=== PATIENT | female | born 1950 | race Caucasian/White ===

== ENCOUNTER 2019-06-25 11:11 | Outpatient (CLI) | payer MEDICARE, OTHER ==
[2019-06-25 11:50] LABS: BASOPHILS # (AUTO) 0.1 10^3/uL (0.0-0.1); BASOPHILS % (AUTO) 0.6 %; EOSINOPHILS # (AUTO) 0.3 10^3/uL (0.0-0.7); EOSINOPHILS % (AUTO) 3.4 %; HGB - HEMOGLOBIN 14.5 g/dL (12.0-16.0); LYMPHOCYTES # (AUTO) 3.8 10^3/uL (1.5-3.5); LYMPHOCYTES % (AUTO) 48.8 %; MEAN CORPUSCULAR HEMOGLOBIN 30.4 pg (27.0-31.0); MEAN CORPUSCULAR HGB CONC 32.4 g/dL (32.0-36.0); MEAN CORPUSCULAR VOLUME 93.9 fL (81.0-99.0); MEAN PLATELET VOLUME 9.4 fL (7.9-10.8); MONOCYTES # (AUTO) 0.6 10^3/uL (0.0-1.0); MONOCYTES % (AUTO) 7.6 %; NEUTROPHILS % (AUTO) 38.8 %; PLT - PLATELET COUNT 258 10^3/uL (130-450); RED BLOOD COUNT 4.77 10^6/uL (4.20-5.40); WHITE BLOOD COUNT 7.7 x10^3/uL (4.8-10.8)
[2019-06-25 12:16] LABS: ALBUMIN 4.1 g/dL (3.2-5.5); ALBUMIN/GLOBULIN RATIO 1.4 (1.0-2.2); ALKALINE PHOSPHATASE 74 IU/L (42-121); ALT ALANINE AMINOTRANSFERASE 23 IU/L (10-60); AST ASPARTATE AMINOTRANSFERASE 24 IU/L (10-42); BILIRUBIN,TOTAL 0.6 mg/dL (0.2-1.0); BUN - BLOOD UREA NITROGEN 14 mg/dL (6-20); CALCIUM 9.5 mg/dL (8.5-10.3); CARBON DIOXIDE - CO2 29 mmol/L (21-32); CHLORIDE 104 mmol/L (101-111); CHOL/HDL RATIO 4.5 (<4.4); CHOLESTEROL 327 mg/dL; CREATININE 0.8 mg/dL (0.4-1.0); GFR - MDRD 72 (>89); GLUCOSE 101 mg/dL (70-100); HDL CHOLESTEROL 73 mg/dL; LDL CHOLESTEROL,CALCULATED 224 mg/dL; LDL/HDL RATIO 3.1 (<4.4); SODIUM 141 mmol/L (135-145); TOTAL PROTEIN 7.1 g/dL (6.7-8.2); VLDL CHOLESTEROL 30 mg/dL
[2019-06-25 13:15] LABS: THYROID STIMULATING HORMONE 1.44 uIU/mL (0.34-5.60)
[2019-06-25 13:16] LABS: FREE T4 (FREE THYROXINE) 0.82 ng/dL (0.58-1.64)
== END 2019-06-25 11:12 | disposition home or self-care (01) ==
LOC: LAB 11:11
PROVIDERS: ATTEND Family Medicine
DX: F32.9 Major depressive disorder, single episode, unspecified (principal); Z13.6 Encounter for screening for cardiovascular disorders; M54.30 Sciatica, unspecified side; Z13.220 Encounter for screening for lipoid disorders
CPT/HCPCS: 36415; 80053; 80061; 83721; 84439; 84443; 84481; 85025

== ENCOUNTER 2020-06-12 10:18 | Inpatient (IN) | payer MEDICARE, OTHER ==
[2020-06-12] MEDS ORDERED: SODIUM CHLORIDE 0.9% 1,000 ML IV STA ×4 (10:47→12:18)
[2020-06-12] MEDS ORDERED: ACETAMINOPHEN 1,000 MG/100 ML 100 ML IV ONE (10:48)
[2020-06-12] MEDS ORDERED: TRANEXAMIC ACID 1,000 MG in SODIUM CHLORIDE 0.9% 100ML 100 ML IV STA (10:48)
[2020-06-12] MEDS ORDERED: fentaNYL 100 MCG/2 ML VIAL IVP STA (10:48)
--- NOTE | 2020-06-12 10:49 | ED Physician Documentation ---
PD HPI ABD PAIN - Stated complaint Stated Complaint: FEMAL - Chief complaint Chief Complaint: Abd Pain - History obtained from History obtained from: Patient - History of Present Illness Timing - onset: How many days ago (3) Timing - details: Still present (much worse this morning - He was some crampy pain in the low abdomen and some blood in her stool with loose stool 3 days ago. Better for 2 days. Onset cramping pain and significant bloody watery stool this morning. Pale and initially hypotensive.), Intermittant (much worse this morning) Quality: Cramping, Aching, Pain Location: LUQ, LLQ Radiation: No: Lower back, Left flank Associated symptoms: Nausea, Vomiting, Diarrhea, Hematochezia (10-12 episodes of somewhat watery but very bloody stool about a cup at a time over the last several hours. No stool per se.). No: Fever, Dysuria Similar symptoms before: Has not had sx before Review of Systems Constitutional: reports: Myalgias, Fatigue (for couple days). denies: Fever, Chills Nose: denies: Rhinorrhea / runny nose, Congestion Throat: denies: Sore throat Respiratory: denies: Cough GI: reports: Nausea, Diarrhea, Bloody / black stool : denies: Dysuria Neurologic: reports: Generalized weakness, Near syncope (this morning) Endocrine: denies: Weight loss, Easy bruising / bleeding Immunocompromised: denies: Immunocompromised PD PAST MEDICAL HISTORY - Past Medical History Cardiovascular: None Respiratory: None Neuro: None Endocrine/Autoimmune: None GI: Other (IBS) Psych: Depression - Present Medications Home Medications: Ambulatory Orders Medication Instructions Recorded Confirmed Fluoxetine HCl [Prozac] 40 mg PO DAILY 06/12/20 Gabapentin [Neurontin] 400 mg PO 06/12/20 Melatonin 10 mg PO DAILY PM 06/12/20 Simethicone [Gas Relief] 180 mg PO BID 06/12/20 Simvastatin 40 mg PO DAILY PM 06/12/20 - Allergies Allergies/Adverse Reactions: Allergies Allergy/AdvReac Type Severity Reaction Status Date / Time No Known Drug Allergies Allergy Verified 06/12/20 10:22 PD ED PE NORMAL - Vitals Vital signs reviewed: Yes (Tachycardic and very pale. She has syncope while talking to her.) - General General: Alert and oriented X 3, Well developed/nourished - HEENT HEENT: Pharynx benign - Neck Neck: Supple, no meningeal sign, No adenopathy - Cardiac Cardiac: No murmur. No: RRR (tachycardic but regular) - Respiratory Respiratory: Clear bilaterally - Abdomen Abdomen: Soft, Non distended, No organomegaly, Other (In the left mid to lower abdomen without any localized guarding or percussion tenderness.). No: Normal bowel sounds (decreased) - Rectal Rectal: Other (Candido blood and slightly watery stool output about 8 ounces per rectum acutely.) - Back Back: No CVA TTP - Derm Derm: No: Normal color (very pale And diaphoretic) - Extremities Extremities: No tenderness to palpate, No edema, No calf tenderness / cord Results - Vitals Vitals: Vital Signs - 24 hr 06/12/20 06/12/20 06/12/20 10:23 10:33 10:37 Temperature 36.8 C Heart Rate 119 H 71 Respiratory 18 18 Rate Blood Pressure 123/76 104/80 108/73 O2 Saturation 100 98 06/12/20 06/12/20 06/12/20 11:00 11:22 11:30 Temperature 36.4 C L Heart Rate 62 62 67 Respiratory 11 L 13 11 L Rate Blood Pressure 102/61 100/53 L 111/63 O2 Saturation 98 100 100 06/12/20 06/12/20 06/12/20 12:00 12:24 12:30 Temperature 36.3 C L 36.3 C L Heart Rate 85 85 68 Respiratory 16 16 19 Rate Blood Pressure 106/41 L 114/51 L 107/59 L O2 Saturation 100 06/12/20 12:40 Temperature 36.1 C L Heart Rate 65 Respiratory 15 Rate Blood Pressure 106/57 L O2 Saturation Oxygen O2 Source Room air - Labs Labs: Laboratory Tests 06/12/20 06/12/20 06/12/20 10:29 10:45 10:45 WBC 8.2 RBC 3.99 L Hgb 12.3 Hct 36.6 L MCV 91.7 MCH 30.8 MCHC 33.6 RDW 12.9 Plt Count 284 MPV 9.9 Neut # (Auto) Not Reportable Lymph # (Auto) Not Reportable [place] # (Auto) Not Reportable Eos # (Auto) Not Reportable Baso # (Auto) Not Reportable Absolute Nucleated RBC Not Reportable Total Counted 100 Band Neuts % (Manual) 0 Reactive Lymphs % (Man) 38 Abnorm Lymph % (Manual) 0 Nucleated RBC % Not Reportable Neutrophils # (Manual) 2.3 Lymphocytes # (Manual) 5.4 H Monocytes # (Manual) 0.3 Eosinophils # (Manual) 0.0 Basophils # (Manual) 0.2 H Differential Comment MANUAL DIFFERENTIAL Manual Slide Review Indicated RBC Morph Micro Appear 2+ ANISOCYTOSIS PT INR APTT Sodium 140 Potassium 3.8 Chloride 104 Carbon Dioxide 26 Anion Gap 10.0 BUN 15 Creatinine 0.9 Estimated GFR (MDRD) 62 L Glucose 115 H Lactic Acid Calcium 8.9 Total Bilirubin 0.5 AST 24 ALT 22 Alkaline Phosphatase 60 Total Protein 6.1 L Albumin 3.6 Globulin 2.5 Albumin/Globulin Ratio 1.4 Lipase 26 Urine Color YELLOW Urine Clarity CLEAR Urine pH 8.0 H Ur Specific [place] 1.020 Urine Protein NEGATIVE Urine Glucose (UA) NEGATIVE Urine Ketones NEGATIVE Urine Occult Blood LARGE H Urine Nitrite NEGATIVE Urine Bilirubin NEGATIVE Urine Urobilinogen 0.2 (NORMAL) Ur Leukocyte Esterase NEGATIVE Urine RBC 0-5 Urine WBC 0-3 Ur Squamous Epith Cells FEW Squamous Urine Bacteria Few Ur Microscopic Review INDICATED Urine Culture Comments NOT INDICATED Stl C. diff Tox B Gene Blood Type Blood Type Recheck Antibody Screen Crossmatch IS Only 06/12/20 06/12/20 06/12/20 10:45 10:45 11:09 WBC RBC Hgb Hct MCV MCH MCHC RDW Plt Count MPV Neut # (Auto) Lymph # (Auto) [place] # (Auto) Eos # (Auto) Baso # (Auto) Absolute Nucleated RBC Total Counted Band Neuts % (Manual) Reactive Lymphs % (Man) Abnorm Lymph % (Manual) Nucleated RBC % Neutrophils # (Manual) Lymphocytes # (Manual) Monocytes # (Manual) Eosinophils # (Manual) Basophils # (Manual) Differential Comment Manual Slide Review RBC Morph Micro Appear PT 12.4 INR 1.1 APTT 25.1 Sodium Potassium Chloride Carbon Dioxide Anion Gap BUN Creatinine Estimated GFR (MDRD) Glucose Lactic Acid 2.0 Calcium Total Bilirubin AST ALT Alkaline Phosphatase Total Protein Albumin Globulin Albumin/Globulin Ratio Lipase Urine Color Urine Clarity Urine pH Ur Specific [place] Urine Protein Urine Glucose (UA) Urine Ketones Urine Occult Blood Urine Nitrite Urine Bilirubin Urine Urobilinogen Ur Leukocyte Esterase Urine RBC Urine WBC Ur Squamous Epith Cells Urine Bacteria Ur Microscopic Review Urine Culture Comments Stl C. diff Tox B Gene Blood Type A POSITIVE Blood Type Recheck Antibody Screen NEGATIVE Crossmatch IS Only See Detail 06/12/20 06/12/20 11:09 11:16 WBC RBC Hgb Hct MCV MCH MCHC RDW Plt Count MPV Neut # (Auto) Lymph # (Auto) [place] # (Auto) Eos # (Auto) Baso # (Auto) Absolute Nucleated RBC Total Counted Band Neuts % (Manual) Reactive Lymphs % (Man) Abnorm Lymph % (Manual) Nucleated RBC % Neutrophils # (Manual) Lymphocytes # (Manual) Monocytes # (Manual) Eosinophils # (Manual) Basophils # (Manual) Differential Comment Manual Slide Review RBC Morph Micro Appear PT INR APTT Sodium Potassium Chloride Carbon Dioxide Anion Gap BUN Creatinine Estimated GFR (MDRD) Glucose Lactic Acid Calcium Total Bilirubin AST ALT Alkaline Phosphatase Total Protein Albumin Globulin Albumin/Globulin Ratio Lipase Urine Color Urine Clarity Urine pH Ur Specific [place] Urine Protein Urine Glucose (UA) Urine Ketones Urine Occult Blood Urine Nitrite Urine Bilirubin Urine Urobilinogen Ur Leukocyte Esterase Urine RBC Urine WBC Ur Squamous Epith Cells Urine Bacteria Ur Microscopic Review Urine Culture Comments Stl C. diff Tox B Gene NEGATIVE Blood Type Blood Type Recheck A POSITIVE Antibody Screen Crossmatch IS Only - Rads (name of study) abd CT Radiology: Prelim report reviewed (Colitis noted in the transverse to descending colon. There is some diverticula but no diverticulitis. No perforation.), See rad report PD MEDICAL DECISION MAKING - ED course Complexity details: reviewed results, re-evaluated patient (There is improved and blood pressure is consistently over 100 after fluids. I was initially concerned for the ongoing amount of output and had not yet had the blood count back. I did order 1 unit of transfusion to help with blood pressure support, as hypotensive still after 2 L fluid ), considered differential, d/w patient, d/w sr. consultant (Consulted early with Dr. Berger for surgery. To see how her blood count and blood pressure do with fluids. CT scan indicated. If focal bleeding such as diverticula, may need transferring for IR. Otherwise can treat as colitis.) ED course: Pressure and heart rate to normalize. She has better color. She is able to talk clearly. She has less stool out since arrival and has had just 1 more passage of bloody diarrhea about 75 mL in the ER. It does seem to be tapering. CT showing colitis and not a focal diverticulitis. No evidence of ischemic bowel. - Critical Care Time(min): 45 Time Includes: Direct patient care, Document care, Coordinate care Departure - Departure Disposition: 66 [facility] DC/Xfer Clinical Impression: Acute colitis, Lower GI bleeding, Transient hypotension Condition: Stable Record reviewed to determine appropriate education?: Yes Discharge Date/Time: 06/12/20 13:55
[2020-06-12 10:57] LABS: BILIRUBIN,URINE NEGATIVE (NEGATIVE); GLUCOSE, URINE (UA) NEGATIVE (NEGATIVE); KETONES,URINE (UA) NEGATIVE (NEGATIVE); LEUKOCYTE ESTERASE, URINE NEGATIVE (NEGATIVE); NITRITE,URINE NEGATIVE (NEGATIVE); OCCULT BLOOD,URINE LARGE (NEGATIVE); PROTEIN,URINE NEGATIVE (NEGATIVE); UROBILINOGEN,URINE 0.2 (NORMAL) E.U./dL (NORMAL)
[2020-06-12 11:01] LABS: BASOPHILS % (AUTO) 0.6 %; EOSINOPHILS % (AUTO) 3.7 %; HGB - HEMOGLOBIN 12.3 g/dL (12.0-16.0); MEAN CORPUSCULAR HEMOGLOBIN 30.8 pg (27.0-31.0); MEAN CORPUSCULAR HGB CONC 33.6 g/dL (32.0-36.0); MEAN CORPUSCULAR VOLUME 91.7 fL (81.0-99.0); MEAN PLATELET VOLUME 9.9 fL (7.9-10.8); MONOCYTES % (AUTO) 5.7 %; NEUTROPHILS % (AUTO) 37.5 %; PLT - PLATELET COUNT 284 10^3/uL (130-450); RED BLOOD COUNT 3.99 10^6/uL (4.20-5.40); RED CELL DISTRIBUTION WIDTH 12.9 % (12.0-15.0); WHITE BLOOD COUNT 8.2 x10^3/uL (4.8-10.8)
[2020-06-12 11:03] LABS: ABNORMAL LYMPHS % (MANUAL) 0 %; BAND NEUTROPHILS % (MANUAL) 0 %
[2020-06-12 11:09] LABS: ALBUMIN 3.6 g/dL (3.2-5.5); ALBUMIN/GLOBULIN RATIO 1.4 (1.0-2.2); BILIRUBIN,TOTAL 0.5 mg/dL (0.2-1.0); CALCIUM 8.9 mg/dL (8.5-10.3); CREATININE 0.9 mg/dL (0.4-1.0); TOTAL PROTEIN 6.1 g/dL (6.7-8.2)
[2020-06-12 11:11] LABS: CLARITY,URINE CLEAR (CLEAR)
[2020-06-12 11:14] LABS: BACTERIA,URINE Few /HPF (None Seen); RBC,URINE 0-5 /HPF (0-5); SQUAMOUS EPITHELIAL CELL,UR FEW Squamous (<= Few)
[2020-06-12 11:20] LABS: BASOPHILS # (MANUAL) 0.2 10^3/uL (0-0.1); BASOPHILS % (MANUAL) 2 %; LYMPHOCYTES # (MANUAL) 5.4 10^3/uL (1.5-3.5); LYMPHOCYTES % (MANUAL) 28 %; MONOCYTES # (MANUAL) 0.3 10^3/uL (0.0-1.0)
[2020-06-12 11:21] LABS: DIFFERENTIAL COMMENT MANUAL DIFFERENTIAL; RBC MORPHOLOGY (MULTIPLE) 2+ ANISOCYTOSIS (NORMAL)
[2020-06-12 11:27] LABS: INR 1.1 (0.8-1.2); PT - PROTHROMBIN TIME 12.4 secs (9.9-12.6)
[2020-06-12 11:34] LABS: PARTIAL THROMBOPLASTIN TIME 25.1 secs (24.9-33.3)
[2020-06-12] MEDS ORDERED: IOVERSOL 320 100 ML VIAL IVP ONE ×2 (11:45→17:42)
--- NOTE | 2020-06-12 12:29 | CT Report ---
PROCEDURE: Abdomen/Pelvis W INDICATIONS: lower abd pain and GI bleeding CONTRAST: IV CONTRAST: Optiray 320 ml: 100 PO CONTRAST: *NO PO CONTRAST TECHNIQUE: After the administration of 100 cc Optiray 320 IV contrast, 5 mm thick sections acquired from the abdoul phragms to the symphysis. 5 mm thick coronal and sagittal reformats were acquired. For radiation do se reduction, the following was used: automated exposure control, adjustment of mA and/or kV accordi ng to patient size. COMPARISON: None. FINDINGS: Image quality: Excellent. ABDOMEN: Lung bases: Lung bases are clear. Heart size is normal. Moderate-sized hiatal hernia. Solid organs: Liver and spleen are normal in size and enhancement. Gallbladder has a normal CT appe arance. Biliary system is non dilated. Pancreas enhances normally. No adrenal nodules. Kidneys de monstrate normal size and enhancement, without hydronephrosis. Peritoneum and bowel: The colon is decompressed beginning at the mid transverse and demonstrates sli ght wall thickening to the distal descending colon. Numerous diverticula are present in the sigmoid c olon. The rectum is diffusely decompressed. Trace inflammatory changes seen in the left paracolic gut ter. Occasional diverticula present in the descending colon. The appendix is not visible. No small christina wel obstruction. No free fluid or air. Nodes and vessels: No retroperitoneal or mesenteric adenopathy by size criteria. Aorta and inferior vena cava are normal in size. Miscellaneous: No ventral hernias. PELVIS: Genitourinary: Bladder wall thickness is normal. The uterus is retroverted. There are surgical clip s of tubal ligation present. Miscellaneous: No inguinal hernias or adenopathy. Bones: No suspicious bony lesions. No vertebral body compression fractures. IMPRESSION: 1. Colon spasm or mild colitis from the mid transverse through distal descending colon. No evidence o f perforation or abscess. 2. Sigmoid diverticulosis without acute diverticulitis. 3. Moderate-sized hiatal hernia. Reviewed by: Zora Gonzalez MD on 06/12/2020 11:28 AM BLAYNE Approved by: Zora Gonzalez MD on 06/12/2020 11:28 AM AKNOMI Station ID: [id number]
[2020-06-12] MEDS ORDERED: HYDROmorphone 0.5 MG/0.5 ML SYRINGE IVP PRN (12:55)
[2020-06-12] MEDS ORDERED: ONDANSETRON ODT 4 MG TABLET TL PRN (12:55)
[2020-06-12] MEDS ORDERED: ONDANSETRON 4 MG/2 ML VIAL IVP PRN (12:55)
[2020-06-12] MEDS ORDERED: PANTOPRAZOLE 40 MG VIAL IVP SCH (13:00)
[2020-06-12] MEDS ORDERED: metroNIDAZOLE 500 MG/100 ML 500 MG/100 ML BAG IV ONE (13:02)
[2020-06-12] MEDS ORDERED: DEXAMETHASONE 10 MG/ML VIAL IVP STA (13:02)
--- NOTE | 2020-06-12 13:06 | HISTORY & PHYSICAL EXAMINATION ---
Chief Complaint - Chief Complaint Chief Complaint: bloody stool/diarrhea History of Present Illness - Admitted From Admitted From:: home/ER - History Obtained From Records Reviewed: [facility] History obtained from: patient Exam Limitations: none - History of Present Illness HPI Comment/Other: 69-year-old white female who has irritable bowel syndrome. For decades she will get episodes of sudden onset of severe abdominal cramping. Then the diarrhea comes. Will last few hours to a few days. Accompanied by sweats, nausea. She has had 3 colonoscopies so far. The second colonoscopy had "an ulcer" that was followed up by a CT scan. Pathology was negative she remembers. CT scan showed "a spot" with a subsequent follow-up CT scan where everything was "good". The third colonoscopy was negative. All of them have showed diverticulosis. She is due to have another colonoscopy same around 2018 but has not done one yet. Shayne just told her to have a scheduled appointment soon. She is not had any recent travel. She just ate at [employer] last . Friday at 1 in the morning she woke up in the middle the night with severe abdominal cramping. Thought she was having a normal bowel movement but when she wiped there was copious amounts of blood in the toilet and on the toilet paper. No fever, no chills. The abdominal pain was gone. The next day she had a normal bowel movement. Then on Friday she began having crampy abdominal pain again. She is had a few bowel movements that are with blood in them. But also very watery with almost no stool in them. No fever no chills just crampy waxing and waning pain. She came to the emergency room where she was evaluated by Dr. Burris. Temperature is 36.8. Pulse was 119. Blood pressure 123/76. Respirations 18 and 100% on room air. However, he describes her as pale, and hypotensive.He was alarmed enough at her appearance that he thought she was having a GI bleed and typed and crossed her immediately. She received dexamethasone, fentanyl, Dilaudid, metronidazole, 4 L of fluid wide open with Zofran and tranexamic acid. She stabilized with that. And her lab work came back with a hemoglobin of 12.3. White cell count was not elevated.CT of the abdomen had slight wall thickening of the mid transverse bowel to the distal descending colon. Numerous diverticuli. Rectum diffusely decompressed. Trace inflammatory changes seen in the left paracolic gutter. No diverticulitis, or acute changes. There appears to be colon spasm that was being seen. She also has a moderate sized hiatal hernia. Hospitalist service is being asked to admit the patient for new onset diarrhea, bloody stool, and colitis versus infection. 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 Many times is felt the world would be a better place without her. She has been tried on fluoxetine, Paxil and trazodone. Psychiatry changed her medications from Prozac to Zoloft August 2019.) Musculoskeletal: reports: Chronic back pain (with sciatica. Sees [facility]. Has had 4 epidurals. 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 Dad had an MS And at age 43. Older sister has coronary artery disease and congestive heart failure. Next oldest sister has irritable bowel syndrome and lung cancer. NeXT sister has Parkinson's disease. Her 2 sons are completely healthy. Living arrangement: At home Living Situation: With spouse/s.o. Social History Notes: She has never smoked. She has no history of alcohol abuse.She moved to [facility] in 2018.She was born and raised in [facility]. Met her and they had fallen in love with the [facility] because they visited he had 1 of his uncles here. They lived in [place] as well as [place]. Then his job to come back down to [place]. 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 Very stressful job. Retired back here because they love it. 1 of her sons lives in [place]. - Substance History Use: Uses substance without health or social issues: NONE Abuse: Recurrent use of substance despite neg consequences: NONE Dependence: Experiences withdrawal or developed tolerances: NONE - POLST Patient has POLST: No POLST Status: Full Code Meds/Allgy - Home Medications Home Medications: Ambulatory Orders Medication Instructions Recorded Confirmed Fluoxetine HCl [Prozac] 40 mg PO DAILY 06/12/20 Gabapentin [Neurontin] 400 mg PO 06/12/20 Melatonin 10 mg PO DAILY PM 06/12/20 Simethicone [Gas Relief] 180 mg PO BID 06/12/20 Simvastatin 40 mg PO DAILY PM 06/12/20 - Allergies Allergies/Adverse Reactions: Allergies Allergy/AdvReac Type Severity Reaction Status Date / Time No Known Drug Allergies Allergy Verified 06/12/20 10:22 Review of Systems - Constitutional Constitutional: reports: Diaphoresis (only w cramps). denies: Fatigue, Fever, Chills, Malaise, Weakness, Poor appetite, Weight gain, Weight loss - Eyes Eyes: denies: Pain, Irritation, Amaurosis, Blurred vision, Vision loss - Ears, Nose & Throat Ears, Nose & Throat: denies: Ear pain, Hearing loss, Hearing aids, Tinnitus, Vertigo, Sore throat, Hoarseness - Cardiovascular Cariovascular: denies: Irregular heart rate, Palpitations, Chest pain, Edema, Syncope, Exertional dyspnea, Decr. exercise tolerance - Respiratory Respiratory: denies: Cough, Sputum production, Wheezing, SOB at rest, SOB with exertion - Gastrointestinal Gastrointestinal: reports: Abdominal pain, Diarrhea, Change in bowel habits, Rectal bleeding, Nausea - Genitourinary Genitourinary: denies: Dysuria, Frequency, Urgency, Hematuria - Musculoskeletal Musculoskeletal: reports: Joint pain (At the bases of her thumbs. Attributes that to aging.), Other (Chronic low back pain from her spinal stenosis. Sciatic pain waxes and wanes and flares up.) - Integumentary Integumentary: denies: Rash, Pruritis, Lesions, Dryness - Neurological Neurological: denies: General weakness, Focal weakness, Headache, Memory problems, Pre-existing deficit - Psychiatric Psychiatric: reports: Depression (Stable at this time.), Suicidal (In the past. Not currently.). denies: Delusions, Hallucinations, Homicidal - Endocrine Endocrine: denies: Polyuria, Polydypsia, Polyphagia, Intolerance to cold - Hematologic/Lymphatic Hematologic/Lymphatic: denies: Anemia, Bruising, Petechiae Prior Level of Functionality: Completely independent with regards to dressing herself, feeding herself, taking showers. Does light housework. Drives. Helps pay the bills. Does not use any durable medical equipment. Exam - Vital Signs Reviewed Vital Signs: Yes Vital Signs: Vital Signs x48h Temp Pulse Resp BP Pulse Ox 06/12/20 12:40 36.1 C L 65 15 106/57 L 06/12/20 12:30 36.3 C L 68 19 107/59 L 06/12/20 12:24 36.3 C L 85 16 114/51 L 06/12/20 12:00 85 16 106/41 L 100 06/12/20 11:30 67 11 L 111/63 100 06/12/20 11:22 62 13 100/53 L 100 06/12/20 11:00 36.4 C L 62 11 L 102/61 98 06/12/20 10:37 71 18 108/73 98 06/12/20 10:33 104/80 06/12/20 10:23 36.8 C 119 H 18 123/76 100 - Physical Exam General Appearance: positive: No acute distress, Alert, Other (Nourished well- developed white female who is laying comfortably in bed) Eyes Bilateral: positive: PERRL ENT: positive: Pharynx nml Neck: positive: No JVD. negative: Stiff neck Respiratory: positive: Chest non-tender. negative: Wheezes, Rales, Rhonchi Cardiovascular: positive: Regular rate & rhythm, Systolic murmur. negative: Gallop/S4, Friction rub Peripheral Pulses: positive: 1+ Abdomen: positive: Non-tender, No organomegaly, No distention, Other (Hyperactive bowel sounds) Skin: positive: Warm, Dry. negative: Diaphoresis, Pallor Extremities: positive: Non-tender, No pedal edema Neurologic/Psychiatric: positive: Oriented x3, CN's nml (2-12), Motor nml Conclusion/Plan - Problem List (1) Bloody diarrhea Conclusion/Plan: Sudden onset. Sounds like she presented with a painless bloody bowel movement, and then has had diarrhea sometimes with blood in it. Gradually worsening over the last 2 days with her abdominal pain followed by the bloody diarrhea. There have been no fever, no chills. No one else in her life is sick. She does not have a history of inflammatory bowel disease And has only been diagnosed with irritable bowel syndrome so developing inflammatory bowel disease at 69 would be unusual. There is been no change in diet. There is no nausea or vomiting with this. CT scan does not show ischemic colitis. She is not at risk for ischemic colitis. She could have infectious diarrhea. In the emergency room she has become hypotensive with this. However with treatment with dexamethasone, fentanyl, metronidazole and transexamic acid she has improved After her transient hypotension. She could also have diverticular bleeding. Plan: Inpatient admission due to severity of illness with hypotension, pain and amount of diarrhea Serial hemograms to make sure she is not losing enough blood to be transfused. Dr. Burris is already typed and crossed her and she has 2 units available if we needed. Send stool for Entamoeba, Salmonella, Shigella, C. difficile, fecal leukocyte. Stool culture. Parasites. IV fluids for hydration Opiates, IV, for pain management Antiemetics PRN (2) Chronic pain Conclusion/Plan: At this time she takes gabapentin. We also will give her Tylenol as needed, oxycodone as needed. Qualifiers: Chronic pain type: chronic pain syndrome Qualified Code(s): G89.4 - Chronic pain syndrome (3) Depression Conclusion/Plan: Resume fluoxetine. Qualifiers: Depression Type: unspecified Qualified Code(s): F32.9 - Major depressive disorder, single episode, unspecified - Lab Results Lab results reviewed: Yes Fish Bones: 06/12/20 15:53 06/12/20 10:45 - Diagnostic Imaging Results Diagnostic Imaging Results: positive: Final report reviewed
[2020-06-12] MEDS: LACTATED RINGERS 1,000 ML IV SCH (15:07)
[2020-06-12 16:00] LABS: BASOPHILS % (AUTO) 0.4 %; EOSINOPHILS % (AUTO) 0.1 %; HGB - HEMOGLOBIN 11.8 g/dL (12.0-16.0); LYMPHOCYTES # (AUTO) 1.7 10^3/uL (1.5-3.5); LYMPHOCYTES % (AUTO) 16.4 %; MEAN CORPUSCULAR HEMOGLOBIN 30.6 pg (27.0-31.0); MEAN CORPUSCULAR HGB CONC 33.3 g/dL (32.0-36.0); MEAN CORPUSCULAR VOLUME 91.7 fL (81.0-99.0); MEAN PLATELET VOLUME 9.5 fL (7.9-10.8); MONOCYTES # (AUTO) 0.1 10^3/uL (0.0-1.0); MONOCYTES % (AUTO) 1.3 %; NEUTROPHILS # (AUTO) 8.2 10^3/uL (1.5-6.6); PLT - PLATELET COUNT 228 10^3/uL (130-450); RED BLOOD COUNT 3.86 10^6/uL (4.20-5.40); RED CELL DISTRIBUTION WIDTH 13.2 % (12.0-15.0); WHITE BLOOD COUNT 10.1 x10^3/uL (4.8-10.8)
[2020-06-12] MEDS: SODIUM CHLORIDE FLUSH 0.9% 10 ML SYRINGE IVP SCH (17:33)
[2020-06-12] MEDS: PANTOPRAZOLE 40 MG VIAL IVP SCH (17:33)
--- NOTE | 2020-06-12 17:41 | PHARMACY PROGRESS NOTE ---
- Best Possible Medication History Admit Date and Time: 06/12/20 9092 Processed by: Pharmacy Medication History completed: Yes Patient Interview: Completed Secondary Source(s): Physician records, Pharmacy records, Insurance records As the person ultimately responsible for medication therapy, providers are able to order a medication from an existing home medication list in [facility] via the "Reconcile Routine" prior to Confirmation of that medication by senior support engineer. Such practice is discouraged except when the physician, in their clinical judgment, deems that a medical need exists for a medication without regard to previous use.
[2020-06-12 18:53] LABS: BASOPHILS % (AUTO) 0.4 %; HGB - HEMOGLOBIN 11.7 g/dL (12.0-16.0); LYMPHOCYTES # (AUTO) 1.7 10^3/uL (1.5-3.5); LYMPHOCYTES % (AUTO) 17.7 %; MEAN CORPUSCULAR HGB CONC 33.6 g/dL (32.0-36.0); MEAN CORPUSCULAR VOLUME 92.1 fL (81.0-99.0); MEAN PLATELET VOLUME 9.6 fL (7.9-10.8); MONOCYTES # (AUTO) 0.1 10^3/uL (0.0-1.0); MONOCYTES % (AUTO) 0.9 %; NEUTROPHILS # (AUTO) 7.6 10^3/uL (1.5-6.6); NEUTROPHILS % (AUTO) 80.5 %; PLT - PLATELET COUNT 234 10^3/uL (130-450); RED BLOOD COUNT 3.78 10^6/uL (4.20-5.40); RED CELL DISTRIBUTION WIDTH 13.3 % (12.0-15.0); WHITE BLOOD COUNT 9.5 x10^3/uL (4.8-10.8)
[2020-06-12] MEDS: FLUoxetine 10 MG CAPSULE PO SCH (21:32)
[2020-06-12] MEDS: GABAPENTIN 400 MG CAPSULE PO SCH (21:32)
[2020-06-12] MEDS: metroNIDAZOLE 500 MG/100 ML 500 MG/100 ML BAG IV SCH (21:34)
[2020-06-13] MEDS: SODIUM CHLORIDE FLUSH 0.9% 10 ML SYRINGE IVP SCH ×4 (01:18→23:39)
[2020-06-13] MEDS: LACTATED RINGERS 1,000 ML IV SCH ×4 (02:53→22:51)
[2020-06-13] MEDS: metroNIDAZOLE 500 MG/100 ML 500 MG/100 ML BAG IV SCH (05:58)
[2020-06-13] MEDS: PANTOPRAZOLE 40 MG VIAL IVP SCH (05:58)
[2020-06-13] MEDS: SODIUM CHLORIDE FLUSH 0.9% 10 ML SYRINGE IVP PRN ×2 (05:59→13:36)
[2020-06-13 08:10] LABS: BASOPHILS % (AUTO) 0.3 %; HGB - HEMOGLOBIN 11.8 g/dL (12.0-16.0); LYMPHOCYTES # (AUTO) 4.8 10^3/uL (1.5-3.5); LYMPHOCYTES % (AUTO) 36.3 %; MEAN CORPUSCULAR HEMOGLOBIN 30.4 pg (27.0-31.0); MEAN CORPUSCULAR HGB CONC 33.2 g/dL (32.0-36.0); MEAN CORPUSCULAR VOLUME 91.5 fL (81.0-99.0); MEAN PLATELET VOLUME 9.6 fL (7.9-10.8); MONOCYTES # (AUTO) 0.8 10^3/uL (0.0-1.0); MONOCYTES % (AUTO) 6.1 %; NEUTROPHILS # (AUTO) 7.6 10^3/uL (1.5-6.6); NEUTROPHILS % (AUTO) 56.7 %; PLT - PLATELET COUNT 265 10^3/uL (130-450); RED BLOOD COUNT 3.88 10^6/uL (4.20-5.40); RED CELL DISTRIBUTION WIDTH 13.3 % (12.0-15.0); WHITE BLOOD COUNT 13.3 x10^3/uL (4.8-10.8)
[2020-06-13 08:16] LABS: CALCIUM 8.2 mg/dL (8.5-10.3); CREATININE 0.8 mg/dL (0.4-1.0)
[2020-06-13] MEDS ORDERED: POTASSIUM CHLORIDE 20 MEQ TABLET PO ONE (12:00)
--- NOTE | 2020-06-13 16:36 | PROVIDER PROGRESS NOTE ---
Assessment/Plan - Problem List (1) Bloody diarrhea Assessment/Plan: Sudden onset of a painless bloody bowel movement then over 2 days she had abdominal pain followed by the bloody diarrhea. There has been no fever, no chills. No one else in her life is sick. She does not have a history of inflammatory bowel disease and has only been diagnosed with irritable bowel syndrome so developing inflammatory bowel disease at 69 would be unusual. There is been no change in diet. There is no nausea or vomiting with this. CT scan does not show ischemic colitis and she is not at risk for ischemic colitis. She could have infectious diarrhea. In the emergency room she has become hypotensive with this. However with treatment with dexamethasone, fentanyl, metronidazole and transexamic acid she has improved After her transient hypotension. She could also have diverticular bleeding. C diff is neg Inpatient admission needed due to severity of illness with hypotension, pain and amount of diarrhea Continue to monitor serial H/H to make sure she is not losing enough blood to be transfused. Stool smaples sent and are pending for Entamoeba, Salmonella, Shigella cultures and for fecal leukocytes and parasites. IV fluids for hydration will taper down as advancing her diet is tolerated. Opiates IV, for pain management ar ordered prn, but pain has lessened considerably. Antiemetics PRN also ordered but not needed today. Will requerst Gen Surg consult, does she need a colonoscopy now and regarding management recommendations for presumed bleeding diverticula. (2) Chronic pain Qualifiers: Chronic pain type: chronic pain syndrome Qualified Code(s): G89.4 - Chronic pain syndrome Assessment/Plan: She had been taking gabapentin. We also ordered Tylenol as needed, oxycodone as needed. (3) Depression Qualifiers: Depression Type: unspecified Qualified Code(s): F32.9 - Major depressive disorder, single episode, unspecified Assessment/Plan: Plan to resume fluoxetine. - Current Meds Current Meds: Current Medications Generic Name Dose Route Start Last Admin Trade Name Freq PRN Reason Stop Dose Admin Fluoxetine HCl 40 mg 06/12/20 21:00 06/12/20 21:32 Prozac PO 40 mg QPM LIAN Administration Gabapentin 400 mg 06/12/20 21:00 06/12/20 21:32 Neurontin PO 400 mg QPM LIAN Administration Lactated Ringer's 1,000 mls @ 100 mls/hr 06/12/20 13:00 06/13/20 13:35 Lr IV 100 mls/hr .Q10H LIAN Administration Pantoprazole Sodium 40 mg 06/12/20 16:00 06/13/20 05:58 Protonix IVP 40 mg QDAC LIAN Administration Sodium Chloride 10 ml 06/12/20 12:55 06/13/20 13:36 Normal Saline Flush 0.9% IVP 10 ml PRN PRN Administration NEEDED PER PROVIDER ORDERS Sodium Chloride 10 ml 06/12/20 17:00 06/13/20 11:24 Normal Saline Flush 0.9% IVP Not Given 0100,0900,1700 LIAN - Lab Result Fish Bone Diagrams: 06/13/20 08:00 06/13/20 08:00 - Additional Planning My Orders: My Active Orders 06/13/20 17:00 metroNIDAZOLE [Flagyl] 500 mg PO 0100,0900,1700 Subjective - Subjective Patient Reports: Feeling Better, Resting Comfortably, No Complaints (No crampy abdominal pain, had one semi-formed brown BM with slight blood streaking externally.) Objective Vital Signs: Vital Signs - 24 hr 06/12/20 06/13/20 06/13/20 23:55 07:50 16:00 Temperature 37.3 C 37.1 C 36.5 C Heart Rate [ 69 73 63 Brachial] Respiratory 16 16 16 Rate Blood Pressure 113/60 108/55 L 110/53 L [Left Brachial artery] O2 Saturation 97 99 100 Oxygen O2 Source Room air I&O (Last 24 Hrs): Intake and Output Totals x24h 06/11/20 06/12/20 06/13/20 23:59 23:59 23:59 Intake Total 6326.667 2743.333 Output Total 2049 2925 Balance 4276.667 -181.667 General: Alert, Oriented x3 HEENT: EOMI, Mucous membr. moist/pink Neck: Supple, No JVD Neuro: Alert, Non Focal Cardiovascular: Regular rate, No murmurs Respiratory: No respiratory distress Abdomen: Soft, No tenderness, Other (Hypoactive bowel sounds) Extremities: No edema - Results Results: Laboratory Results WBC 13.3 x10^3/uL (4.8-10.8) H 06/13/20 08:00 RBC 3.88 10^6/uL (4.20-5.40) L 06/13/20 08:00 Hgb 11.8 g/dL (12.0-16.0) L 06/13/20 08:00 Hct 35.5 % (37.0-47.0) L 06/13/20 08:00 MCV 91.5 fL (81.0-99.0) 06/13/20 08:00 MCH 30.4 pg (27.0-31.0) 06/13/20 08:00 MCHC 33.2 g/dL (32.0-36.0) 06/13/20 08:00 RDW 13.3 % (12.0-15.0) 06/13/20 08:00 Plt Count 265 10^3/uL (130-450) 06/13/20 08:00 MPV 9.6 fL (7.9-10.8) 06/13/20 08:00 Neut # (Auto) 7.6 10^3/uL (1.5-6.6) H 06/13/20 08:00 Lymph # (Auto) 4.8 10^3/uL (1.5-3.5) H 06/13/20 08:00 [place] # (Auto) 0.8 10^3/uL (0.0-1.0) 06/13/20 08:00 Eos # (Auto) 0.0 10^3/uL (0.0-0.7) 06/13/20 08:00 Baso # (Auto) 0.0 10^3/uL (0.0-0.1) 06/13/20 08:00 Absolute Nucleated RBC 0.00 x10^3/uL 06/13/20 08:00 Total Counted 100 06/12/20 10:29 Band Neuts % (Manual) 0 % (0-10) 06/12/20 10:29 Reactive Lymphs % (Man) 38 % 06/12/20 10:29 Abnorm Lymph % (Manual) 0 % 06/12/20 10:29 Nucleated RBC % 0.0 /100WBC 06/13/20 08:00 Neutrophils # (Manual) 2.3 10^3/uL (1.5-6.6) 06/12/20 10:29 Lymphocytes # (Manual) 5.4 10^3/uL (1.5-3.5) H 06/12/20 10:29 Monocytes # (Manual) 0.3 10^3/uL (0.0-1.0) 06/12/20 10:29 Eosinophils # (Manual) 0.0 10^3/uL (0-0.7) 06/12/20 10:29 Basophils # (Manual) 0.2 10^3/uL (0-0.1) H 06/12/20 10:29 Differential Comment MANUAL DIFFERENTIAL 06/12/20 10:29 Manual Slide Review Indicated 06/12/20 10:29 RBC Morph Micro Appear 2+ ANISOCYTOSIS (NORMAL) 06/12/20 10:29 PT 12.4 secs (9.9-12.6) 06/12/20 10:45 INR 1.1 (0.8-1.2) 06/12/20 10:45 APTT 25.1 secs (24.9-33.3) 06/12/20 10:45 Sodium 142 mmol/L (135-145) 06/13/20 08:00 Potassium 3.3 mmol/L (3.5-5.0) L 06/13/20 08:00 Chloride 109 mmol/L (101-111) 06/13/20 08:00 Carbon Dioxide 24 mmol/L (21-32) 06/13/20 08:00 Anion Gap 9.0 (6-13) 06/13/20 08:00 BUN 9 mg/dL (6-20) 06/13/20 08:00 Creatinine 0.8 mg/dL (0.4-1.0) 06/13/20 08:00 Estimated GFR (MDRD) 72 (>89) L 06/13/20 08:00 Glucose 104 mg/dL (70-100) H 06/13/20 08:00 Lactic Acid 2.0 mmol/L (0.5-2.2) 06/12/20 11:09 Calcium 8.2 mg/dL (8.5-10.3) L 06/13/20 08:00 Total Bilirubin 0.5 mg/dL (0.2-1.0) 06/12/20 10:45 AST 24 IU/L (10-42) 06/12/20 10:45 ALT 22 IU/L (10-60) 06/12/20 10:45 Alkaline Phosphatase 60 IU/L (42-121) 06/12/20 10:45 Total Protein 6.1 g/dL (6.7-8.2) L 06/12/20 10:45 Albumin 3.6 g/dL (3.2-5.5) 06/12/20 10:45 Globulin 2.5 g/dL (2.1-4.2) 06/12/20 10:45 Albumin/Globulin Ratio 1.4 (1.0-2.2) 06/12/20 10:45 Lipase 26 U/L (22-51) 06/12/20 10:45 Urine Color YELLOW 06/12/20 10:45 Urine Clarity CLEAR (CLEAR) 06/12/20 10:45 Urine pH 8.0 PH (5.0-7.5) H 06/12/20 10:45 Ur Specific [place] 1.020 (1.002-1.030) 06/12/20 10:45 Urine Protein NEGATIVE mg/dL (NEGATIVE) 06/12/20 10:45 Urine Glucose (UA) NEGATIVE mg/dL (NEGATIVE) 06/12/20 10:45 Urine Ketones NEGATIVE mg/dL (NEGATIVE) 06/12/20 10:45 Urine Occult Blood LARGE (NEGATIVE) H 06/12/20 10:45 Urine Nitrite NEGATIVE (NEGATIVE) 06/12/20 10:45 Urine Bilirubin NEGATIVE (NEGATIVE) 06/12/20 10:45 Urine Urobilinogen 0.2 (NORMAL) E.U./dL (NORMAL) 06/12/20 10:45 Ur Leukocyte Esterase NEGATIVE (NEGATIVE) 06/12/20 10:45 Urine RBC 0-5 /HPF (0-5) 06/12/20 10:45 Urine WBC 0-3 /HPF (0-5) 06/12/20 10:45 Ur Squamous Epith Cells FEW Squamous (<= Few) 06/12/20 10:45 Urine Bacteria Few /HPF (None Seen) 06/12/20 10:45 Ur Microscopic Review INDICATED 06/12/20 10:45 Urine Culture Comments NOT INDICATED 06/12/20 10:45 Stl C. diff Tox B Gene NEGATIVE (NEGATIVE) 06/12/20 11:16 Blood Type A POSITIVE 06/12/20 10:45 Blood Type Recheck A POSITIVE 06/12/20 11:09 Antibody Screen NEGATIVE 06/12/20 10:45 Crossmatch IS Only See Detail 06/12/20 10:45
[2020-06-13] MEDS: metroNIDAZOLE 250 MG TABLET PO SCH (17:04)
[2020-06-13] MEDS: FLUoxetine 10 MG CAPSULE PO SCH (20:14)
[2020-06-13] MEDS: GABAPENTIN 400 MG CAPSULE PO SCH (20:14)
[2020-06-14] MEDS: metroNIDAZOLE 250 MG TABLET PO SCH ×3 (01:39→17:05)
[2020-06-14 05:51] LABS: BASOPHILS # (AUTO) 0.1 10^3/uL (0.0-0.1); BASOPHILS % (AUTO) 0.4 %; EOSINOPHILS # (AUTO) 0.1 10^3/uL (0.0-0.7); EOSINOPHILS % (AUTO) 1.3 %; HGB - HEMOGLOBIN 10.4 g/dL (12.0-16.0); LYMPHOCYTES # (AUTO) 6.6 10^3/uL (1.5-3.5); LYMPHOCYTES % (AUTO) 58.8 %; MEAN CORPUSCULAR HEMOGLOBIN 29.8 pg (27.0-31.0); MEAN CORPUSCULAR VOLUME 93.1 fL (81.0-99.0); MEAN PLATELET VOLUME 9.4 fL (7.9-10.8); MONOCYTES # (AUTO) 0.7 10^3/uL (0.0-1.0); MONOCYTES % (AUTO) 6.3 %; NEUTROPHILS # (AUTO) 3.7 10^3/uL (1.5-6.6); NEUTROPHILS % (AUTO) 32.8 %; PLT - PLATELET COUNT 216 10^3/uL (130-450); RED BLOOD COUNT 3.49 10^6/uL (4.20-5.40); RED CELL DISTRIBUTION WIDTH 13.8 % (12.0-15.0); WHITE BLOOD COUNT 11.2 x10^3/uL (4.8-10.8)
[2020-06-14] MEDS: PANTOPRAZOLE 40 MG VIAL IVP SCH (05:55)
[2020-06-14] MEDS: SODIUM CHLORIDE FLUSH 0.9% 10 ML SYRINGE IVP PRN ×2 (05:56→10:25)
[2020-06-14 05:59] LABS: CREATININE 0.9 mg/dL (0.4-1.0)
[2020-06-14 06:12] LABS: PLATELET ESTIMATE, MANUAL NORMAL (130-450,000) (NORMAL); RBC MORPHOLOGY (MULTIPLE) NORMAL APPEARANCE (NORMAL)
[2020-06-14 06:13] LABS: DIFFERENTIAL COMMENT MANUAL=AUTO DIFF
[2020-06-14] MEDS: LACTATED RINGERS 1,000 ML IV SCH ×2 (08:17→19:13)
[2020-06-14] MEDS: SODIUM CHLORIDE FLUSH 0.9% 10 ML SYRINGE IVP SCH ×2 (08:18→17:05)
[2020-06-14] MEDS ORDERED: ACETAMINOPHEN 325 MG TABLET PO PRN (09:31)
--- NOTE | 2020-06-14 12:02 | PROVIDER PROGRESS NOTE ---
Assessment/Plan - Problem List (1) Bloody diarrhea Assessment/Plan: This started with painless bloody bowel movement. She then had 2 or 3 days that were stable and then another even bigger explosive bloody bowel movement. Inpatient admission was needed due to severity of illness; she had hypotension, then pain and recurrence of diarrhea. Yesterday she had a semi-formed BM with blood streaking. C. difficile is negative. Hemoglobin has dropped minimally from 12.8 down to 10.4 but this is partly hemodilutional since she is in positive fluid balance of 3.5L since admission. Continue to monitor CBC daily. Consult from general surgery for colonoscopy requested for today therefore her diet is being kept at clear liquids. The colonoscopy is planned for tomorrow morning, Suprep to be ordered, starting tonight. (2) Chronic pain Qualifiers: Chronic pain type: chronic pain syndrome Qualified Code(s): G89.4 - Chronic pain syndrome Assessment/Plan: She has adequate pain control while here (3) Depression Qualifiers: Depression Type: unspecified Qualified Code(s): F32.9 - Major depressive disorder, single episode, unspecified Assessment/Plan: She is kept on her same medications as at home - Current Meds Current Meds: Current Medications Generic Name Dose Route Start Last Admin Trade Name Freq PRN Reason Stop Dose Admin Acetaminophen 650 mg 06/14/20 09:31 06/14/20 09:52 Tylenol PO 650 mg Q4HR PRN Administration Pain or Fever > 38C (100.4F) Fluoxetine HCl 40 mg 06/12/20 21:00 06/13/20 20:14 Prozac PO 40 mg QPM LIAN Administration Gabapentin 400 mg 06/12/20 21:00 06/13/20 20:14 Neurontin PO 400 mg QPM LIAN Administration Lactated Ringer's 1,000 mls @ 100 mls/hr 06/12/20 13:00 06/14/20 08:17 Lr IV 100 mls/hr .Q10H LIAN Administration Metronidazole 500 mg 06/13/20 17:00 06/14/20 09:20 Flagyl PO 500 mg 0100,0900,1700 LIAN Administration Pantoprazole Sodium 40 mg 06/12/20 16:00 06/14/20 05:55 Protonix IVP 40 mg QDAC LIAN Administration Sodium Chloride 10 ml 06/12/20 12:55 06/14/20 10:25 Normal Saline Flush 0.9% IVP 10 ml PRN PRN Administration NEEDED PER PROVIDER ORDERS Sodium Chloride 10 ml 06/12/20 17:00 06/14/20 08:18 Normal Saline Flush 0.9% IVP 10 ml 0100,0900,1700 LIAN Administration - Lab Result Fish Bone Diagrams: 06/14/20 05:35 06/14/20 05:35 - Additional Planning My Orders: My Active Orders 06/13/20 17:00 metroNIDAZOLE [Flagyl] 500 mg PO 0100,0900,1700 06/14/20 Consult [General Surgery Consult] [CONS] Routine 06/14/20 09:31 Acetaminophen [Tylenol] 650 mg PO Q4HR PRN Subjective - Subjective Patient Reports: Feeling Better Objective Vital Signs: Vital Signs - 24 hr 06/13/20 06/13/20 06/14/20 16:00 23:35 07:45 Temperature 36.5 C 36.9 C 36.6 C Heart Rate [ 63 69 59 L Brachial] Respiratory 16 16 16 Rate Blood Pressure 110/53 L 106/55 L 116/62 [Left Brachial artery] O2 Saturation 100 97 97 Oxygen O2 Source Room air I&O (Last 24 Hrs): Intake and Output Totals x24h 06/12/20 06/13/20 06/14/20 23:59 23:59 23:59 Intake Total 6326.667 4400.000 1433.333 Output Total 2050 4425 1800 Balance 4276.667 -25.000 -366.667 General: Alert, Oriented x3 HEENT: Atraumatic, PERRLA Neck: Supple, No JVD Neuro: Alert, Non Focal Cardiovascular: Regular rate Respiratory: No respiratory distress Abdomen: Soft Extremities: No edema - Results Results: Laboratory Results WBC 11.2 x10^3/uL (4.8-10.8) H 06/14/20 05:35 RBC 3.49 10^6/uL (4.20-5.40) L 06/14/20 05:35 Hgb 10.4 g/dL (12.0-16.0) L 06/14/20 05:35 Hct 32.5 % (37.0-47.0) L 06/14/20 05:35 MCV 93.1 fL (81.0-99.0) 06/14/20 05:35 MCH 29.8 pg (27.0-31.0) 06/14/20 05:35 MCHC 32.0 g/dL (32.0-36.0) 06/14/20 05:35 RDW 13.8 % (12.0-15.0) 06/14/20 05:35 Plt Count 216 10^3/uL (130-450) 06/14/20 05:35 MPV 9.4 fL (7.9-10.8) 06/14/20 05:35 Neut # (Auto) 3.7 10^3/uL (1.5-6.6) 06/14/20 05:35 Lymph # (Auto) 6.6 10^3/uL (1.5-3.5) H 06/14/20 05:35 [place] # (Auto) 0.7 10^3/uL (0.0-1.0) 06/14/20 05:35 Eos # (Auto) 0.1 10^3/uL (0.0-0.7) 06/14/20 05:35 Baso # (Auto) 0.1 10^3/uL (0.0-0.1) 06/14/20 05:35 Absolute Nucleated RBC 0.00 x10^3/uL 06/14/20 05:35 Total Counted 100 06/12/20 10:29 Band Neuts % (Manual) Not Reportable 06/14/20 05:35 Reactive Lymphs % (Man) 38 % 06/12/20 10:29 Abnorm Lymph % (Manual) Not Reportable 06/14/20 05:35 Nucleated RBC % 0.0 /100WBC 06/14/20 05:35 Neutrophils # (Manual) Not Reportable 06/14/20 05:35 Lymphocytes # (Manual) Not Reportable 06/14/20 05:35 Monocytes # (Manual) Not Reportable 06/14/20 05:35 Eosinophils # (Manual) Not Reportable 06/14/20 05:35 Basophils # (Manual) Not Reportable 06/14/20 05:35 Differential Comment MANUAL=AUTO DIFF 06/14/20 05:35 Manual Slide Review Indicated 06/12/20 10:29 Platelet Estimate NORMAL (130-450,000) (NORMAL) 06/14/20 05:35 RBC Morph Micro Appear NORMAL APPEARANCE (NORMAL) 06/14/20 05:35 PT 12.4 secs (9.9-12.6) 06/12/20 10:45 INR 1.1 (0.8-1.2) 06/12/20 10:45 APTT 25.1 secs (24.9-33.3) 06/12/20 10:45 Sodium 142 mmol/L (135-145) 06/14/20 05:35 Potassium 3.6 mmol/L (3.5-5.0) 06/14/20 05:35 Chloride 108 mmol/L (101-111) 06/14/20 05:35 Carbon Dioxide 27 mmol/L (21-32) 06/14/20 05:35 Anion Gap 7.0 (6-13) 06/14/20 05:35 BUN 7 mg/dL (6-20) 06/14/20 05:35 Creatinine 0.9 mg/dL (0.4-1.0) 06/14/20 05:35 Estimated GFR (MDRD) 62 (>89) L 06/14/20 05:35 Glucose 93 mg/dL (70-100) 06/14/20 05:35 Lactic Acid 2.0 mmol/L (0.5-2.2) 06/12/20 11:09 Calcium 8.0 mg/dL (8.5-10.3) L 06/14/20 05:35 Total Bilirubin 0.5 mg/dL (0.2-1.0) 06/12/20 10:45 AST 24 IU/L (10-42) 06/12/20 10:45 ALT 22 IU/L (10-60) 06/12/20 10:45 Alkaline Phosphatase 60 IU/L (42-121) 06/12/20 10:45 Total Protein 6.1 g/dL (6.7-8.2) L 06/12/20 10:45 Albumin 3.6 g/dL (3.2-5.5) 06/12/20 10:45 Globulin 2.5 g/dL (2.1-4.2) 06/12/20 10:45 Albumin/Globulin Ratio 1.4 (1.0-2.2) 06/12/20 10:45 Lipase 26 U/L (22-51) 06/12/20 10:45 Urine Color YELLOW 06/12/20 10:45 Urine Clarity CLEAR (CLEAR) 06/12/20 10:45 Urine pH 8.0 PH (5.0-7.5) H 06/12/20 10:45 Ur Specific [place] 1.020 (1.002-1.030) 06/12/20 10:45 Urine Protein NEGATIVE mg/dL (NEGATIVE) 06/12/20 10:45 Urine Glucose (UA) NEGATIVE mg/dL (NEGATIVE) 06/12/20 10:45 Urine Ketones NEGATIVE mg/dL (NEGATIVE) 06/12/20 10:45 Urine Occult Blood LARGE (NEGATIVE) H 06/12/20 10:45 Urine Nitrite NEGATIVE (NEGATIVE) 06/12/20 10:45 Urine Bilirubin NEGATIVE (NEGATIVE) 06/12/20 10:45 Urine Urobilinogen 0.2 (NORMAL) E.U./dL (NORMAL) 06/12/20 10:45 Ur Leukocyte Esterase NEGATIVE (NEGATIVE) 06/12/20 10:45 Urine RBC 0-5 /HPF (0-5) 06/12/20 10:45 Urine WBC 0-3 /HPF (0-5) 06/12/20 10:45 Ur Squamous Epith Cells FEW Squamous (<= Few) 06/12/20 10:45 Urine Bacteria Few /HPF (None Seen) 06/12/20 10:45 Ur Microscopic Review INDICATED 06/12/20 10:45 Urine Culture Comments NOT INDICATED 06/12/20 10:45 Stl C. diff Tox B Gene NEGATIVE (NEGATIVE) 06/12/20 11:16 Blood Type A POSITIVE 06/12/20 10:45 Blood Type Recheck A POSITIVE 06/12/20 11:09 Antibody Screen NEGATIVE 06/12/20 10:45 Crossmatch IS Only See Detail 06/12/20 10:45
[2020-06-14] MEDS: SODIUM/POTASSIUM/MAG SULFATES 354 ML PREP KIT PO SCH (20:16)
[2020-06-14] MEDS: FLUoxetine 10 MG CAPSULE PO SCH (21:12)
[2020-06-14] MEDS: GABAPENTIN 400 MG CAPSULE PO SCH (21:12)
[2020-06-15] MEDS: metroNIDAZOLE 250 MG TABLET PO SCH ×2 (01:48→10:38)
[2020-06-15] MEDS: SODIUM CHLORIDE FLUSH 0.9% 10 ML SYRINGE IVP SCH ×2 (01:48→14:33)
[2020-06-15] MEDS: LACTATED RINGERS 1,000 ML IV SCH ×2 (04:57→14:33)
[2020-06-15] MEDS: SODIUM/POTASSIUM/MAG SULFATES 354 ML PREP KIT PO SCH (04:57)
[2020-06-15 05:36] LABS: BASOPHILS % (AUTO) 0.5 %; EOSINOPHILS % (AUTO) 2.5 %; HGB - HEMOGLOBIN 11.5 g/dL (12.0-16.0); LYMPHOCYTES % (AUTO) 49.9 %; MEAN CORPUSCULAR HEMOGLOBIN 30.3 pg (27.0-31.0); MEAN CORPUSCULAR HGB CONC 32.1 g/dL (32.0-36.0); MEAN CORPUSCULAR VOLUME 94.2 fL (81.0-99.0); MEAN PLATELET VOLUME 9.9 fL (7.9-10.8); MONOCYTES % (AUTO) 8.4 %; NEUTROPHILS % (AUTO) 38.4 %; PLT - PLATELET COUNT 220 10^3/uL (130-450); RED CELL DISTRIBUTION WIDTH 13.4 % (12.0-15.0); WHITE BLOOD COUNT 11.6 x10^3/uL (4.8-10.8)
[2020-06-15 05:41] LABS: ABNORMAL LYMPHS % (MANUAL) 0 %; BAND NEUTROPHILS % (MANUAL) 0 %
[2020-06-15 05:42] LABS: CALCIUM 8.6 mg/dL (8.5-10.3); CREATININE 0.8 mg/dL (0.4-1.0)
[2020-06-15] MEDS: PANTOPRAZOLE 40 MG VIAL IVP SCH (05:59)
[2020-06-15] MEDS: SODIUM CHLORIDE FLUSH 0.9% 10 ML SYRINGE IVP PRN (05:59)
[2020-06-15 06:00] LABS: DIFFERENTIAL COMMENT MANUAL DIFFERENTIAL; LYMPHOCYTES % (MANUAL) 60 %; MONOCYTES # (MANUAL) 0.1 10^3/uL (0.0-1.0); PLATELET ESTIMATE, MANUAL NORMAL (130-450,000) (NORMAL); RBC MORPHOLOGY (MULTIPLE) NORMAL APPEARANCE (NORMAL)
--- NOTE | 2020-06-15 11:40 | CONSULTATION NOTE ---
Referring Provider Name of Referring Provider:: Dr. Betty Pittman Consult Date: 06/15/20 Chief Complaint - Chief Complaint Chief Complaint: Gastrointestinal Bleed History of Present Illness - Admitted From Admitted From:: Home - History Obtained From Records Reviewed: EMR History obtained from: Patient Exam Limitations: None - History of Present Illness HPI Comment/Other: 69-year-old white female who has irritable bowel syndrome; no personal or family history of inflammatory bowel disease neither Crohn's disease nor ulcerative colitis. No family history of colorectal cancer. No recent sick contacts or concerning travel. Recent onset of a abdominal cramping/spasms. Development of bright red blood per rectum. After an interval resolution recurrent hematochezia with associated diarrhea for which she presented to the emergency room for work-up. Reports historic colonoscopy that was unremarkable. Reports bowel movements every 24-36 hours with associated necessary straining. History - Past Medical History Cardiovascular: reports: High cholesterol Respiratory: reports: None Neuro: reports: Other (Restless leg syndrome) Endocrine/Autoimmune: reports: None GI: reports: Other (IBS) TICKET SORTER: reports: Other (G2, P2) Psych: reports: Depression (chronic, Cyclical. Many times is felt the world would be a better place without her. She has been tried on fluoxetine, Paxil and trazodone. Psychiatry changed her medications from Prozac to Zoloft August 2019.) Musculoskeletal: reports: Chronic back pain (with [facility]atica. [facility] Has had 4 epidurals. Last 22 August 2019), Other (overuse of right arm with pain) Derm: reports: Eczema MRSA Hx?: No - Past Surgical History General: reports: Appendectomy Ortho: reports: Spine surgery (Anterior cervical discectomy and fusion C4-5, C5- 6), Other (Epidural steroid injection August 2019) /TICKET SORTER: reports: Tubal ligation HEENT: reports: Tonsil/Adenoidectomy - Family & Social History Family History Comment/Other: Mom of complications of carotid arteriosclerotic disease at the age of 43. Dad had an IN And at age 43. Older sister has coronary artery disease and congestive heart failure. Next oldest sister has irritable bowel syndrome and lung cancer. NeXT sister has Parkinson's disease. Her 2 sons are completely healthy. Living arrangement: At home Living Situation: With spouse/s.o. Social History Notes: She has never smoked. She has no history of alcohol abuse.She moved to [facility] in 2018.She was born and raised in [place]. Met her and they had fallen in love with the [facility] because they visited he had 1 of his uncles here. They lived in [place] as well as [place]. Then his job to come back down to [place]. 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 Very stressful job. Retired back here because they love it. 1 of her sons lives in [place]. - Substance History Use: Uses substance without health or social issues: NONE Abuse: Recurrent use of substance despite neg consequences: NONE Dependence: Experiences withdrawal or developed tolerances: NONE - POLST Patient has POLST: No POLST Status: Full Code Meds/Allgy - Home Medications Home Medications: Ambulatory Orders Medication Instructions Recorded Confirmed Fluoxetine HCl [Prozac] 40 mg PO DAILY 06/12/20 06/12/20 Gabapentin [Neurontin] 400 mg PO QPM 06/12/20 06/12/20 Melatonin 10 mg PO QPM 06/12/20 06/12/20 Simethicone [Gas Relief] 180 mg PO BID 06/12/20 06/12/20 Simvastatin 40 mg PO QPM 06/12/20 06/12/20 - Allergies Allergies/Adverse Reactions: Allergies Allergy/AdvReac Type Severity Reaction Status Date / Time No Known Drug Allergies Allergy Verified 06/12/20 10:22 Review of Systems - Constitutional Constitutional: reports: Fatigue, Weakness - Gastrointestinal Gastrointestinal: reports: Abdominal pain, Abdominal distention, Diarrhea, Change in bowel habits, Rectal bleeding, Black stools, Bloody stools. denies: Nausea, Vomiting, Bile emesis, [place] blood emesis Exam - Vital Signs Vital Signs: Vital Signs x48h Temp Pulse Resp BP Pulse Ox 06/15/20 07:21 36.5 C 86 18 126/68 100 - Physical Exam General Appearance: positive: No acute distress, Alert Eyes Bilateral: positive: Normal inspection, PERRL, EOMI ENT: positive: ENT inspection nml Neck: positive: Nml inspection Respiratory: positive: Chest non-tender, No respiratory distress, Breath sounds nml. negative: Wheezes, Rales, Rhonchi Cardiovascular: positive: Regular rate & rhythm Abdomen: positive: Non-tender, No distention. negative: Tenderness, Guarding, Rebound Rectal: positive: Other (Deferred pending colonoscopy.) Skin: positive: Color nml Extremities: positive: Non-tender, Full ROM, Nml appearance Neurologic/Psychiatric: positive: Oriented x3, CN's nml (2-12) Conclusion/Plan - Diagnosis Diagnosis: 1. Gastrointestinal bleed. 2. Acute blood loss anemia. 3. Colitis on imaging. 4. Abdominal discomfort - Plan Plan: 1. Continue care with hospitalist service 2. Maintain bowel rest and IV fluids, bowel prep in anticipation of endoscopic evaluation 3. Transfuse as necessary with serial H&H 4. Plan lower endoscopy to evaluate source, will consider upper endoscopy/gastroesophageoduodenoscopy for occult source of gastrointestinal hemorrhage. 5. Stool studies to rule out infectious etiology for colitis on imaging; will also proceed with random biopsies at the time of colonoscopy. 6. Risk and benefits discussed questions answered informed consent will be obtained to proceed with endoscopic procedure as soon as it is available. - Lab Results Lab results reviewed: Yes Fish Bones: 06/15/20 05:15 06/15/20 05:15 - Diagnostic Imaging Results Diagnostic Imaging Results: positive: Final report reviewed Diagnostic Imaging Results Comments: CT scan abdomen pelvis impression: 1. Colonic spasm or mild colitis from the mid transverse through the distal descending colon. No evidence of perforation or abscess. 2. Sigmoid diverticulosis without acute diverticulitis. 3. Moderate-sized hiatal hernia.
[2020-06-15] MEDS ORDERED: MIDAZOLAM 2 MG/2 ML VIAL IVP ONE (17:22)
[2020-06-15] MEDS ORDERED: PROPOFOL 200 MG/20 ML VIAL IVP ONE (17:22)
[2020-06-15] MEDS ORDERED: LIDOCAINE-MPF 2% 5 ML VIAL IM ONE (17:22)
--- NOTE | 2020-06-15 17:22 | PROVIDER PROGRESS NOTE ---
Assessment/Plan - Problem List (1) Bloody diarrhea Assessment/Plan: She is on a scheduled to undergo colonoscopy at the very end of the ER schedule. Management will depend on findings. Will advance diet following that (2) Chronic pain Qualifiers: Chronic pain type: chronic pain syndrome Qualified Code(s): G89.4 - Chronic pain syndrome (3) Depression Qualifiers: Depression Type: unspecified Qualified Code(s): F32.9 - Major depressive disorder, single episode, unspecified - Current Meds Current Meds: Current Medications Generic Name Dose Route Start Last Admin Trade Name Freq PRN Reason Stop Dose Admin Acetaminophen 650 mg 06/14/20 09:31 06/14/20 09:52 Tylenol PO 650 mg Q4HR PRN Administration Pain or Fever > 38C (100.4F) Fluoxetine HCl 40 mg 06/12/20 21:00 06/14/20 21:12 Prozac PO 40 mg QPM LIAN Administration Gabapentin 400 mg 06/12/20 21:00 06/14/20 21:12 Neurontin PO 400 mg QPM LIAN Administration Lactated Ringer's 1,000 mls @ 100 mls/hr 06/12/20 13:00 06/15/20 14:33 Lr IV 100 mls/hr .Q10H LIAN Administration Metronidazole 500 mg 06/13/20 17:00 06/15/20 10:38 Flagyl PO 500 mg 0100,0900,1700 LIAN Administration Sodium Chloride 10 ml 06/12/20 12:55 06/15/20 05:59 Normal Saline Flush 0.9% IVP 10 ml PRN PRN Administration NEEDED PER PROVIDER ORDERS Sodium Chloride 10 ml 06/12/20 17:00 06/15/20 14:33 Normal Saline Flush 0.9% IVP 10 ml 0100,0900,1700 LIAN Administration - Lab Result Fish Bone Diagrams: 06/15/20 05:15 06/15/20 05:15 - Additional Planning My Orders: My Active Orders 06/15/20 21:00 Famotidine [Pepcid] 20 mg PO BID Objective Vital Signs: Vital Signs - 24 hr 06/14/20 06/15/20 06/15/20 20:54 07:21 16:05 Temperature 36.9 C 36.5 C 37.1 C Heart Rate [ 57 L 86 60 Brachial] Respiratory 18 18 16 Rate Blood Pressure 120/57 L [Left Brachial artery] Blood Pressure 120/64 126/68 [Right Brachial artery] O2 Saturation 99 100 100 Oxygen O2 Source Room air I&O (Last 24 Hrs): Intake and Output Totals x24h 06/13/20 06/14/20 06/15/20 23:59 23:59 23:59 Intake Total 4400.000 3413.333 1960 Output Total 4420 4550 Balance -25.000 -6063.430 6823 - Results Results: Laboratory Results WBC 11.6 x10^3/uL (4.8-10.8) H 06/15/20 05:15 RBC 3.80 10^6/uL (4.20-5.40) L 06/15/20 05:15 Hgb 11.5 g/dL (12.0-16.0) L 06/15/20 05:15 Hct 35.8 % (37.0-47.0) L 06/15/20 05:15 MCV 94.2 fL (81.0-99.0) 06/15/20 05:15 MCH 30.3 pg (27.0-31.0) 06/15/20 05:15 MCHC 32.1 g/dL (32.0-36.0) 06/15/20 05:15 RDW 13.4 % (12.0-15.0) 06/15/20 05:15 Plt Count 220 10^3/uL (130-450) 06/15/20 05:15 MPV 9.9 fL (7.9-10.8) 06/15/20 05:15 Neut # (Auto) Not Reportable 06/15/20 05:15 Lymph # (Auto) Not Reportable 06/15/20 05:15 [place] # (Auto) Not Reportable 06/15/20 05:15 Eos # (Auto) Not Reportable 06/15/20 05:15 Baso # (Auto) Not Reportable 06/15/20 05:15 Absolute Nucleated RBC Not Reportable 06/15/20 05:15 Total Counted 100 06/15/20 05:15 Band Neuts % (Manual) 0 % (0-10) 06/15/20 05:15 Reactive Lymphs % (Man) 38 % 06/12/20 10:29 Abnorm Lymph % (Manual) 0 % 06/15/20 05:15 Nucleated RBC % Not Reportable 06/15/20 05:15 Neutrophils # (Manual) 4.5 10^3/uL (1.5-6.6) 06/15/20 05:15 Lymphocytes # (Manual) 7.0 10^3/uL (1.5-3.5) H 06/15/20 05:15 Monocytes # (Manual) 0.1 10^3/uL (0.0-1.0) 06/15/20 05:15 Eosinophils # (Manual) 0.0 10^3/uL (0-0.7) 06/15/20 05:15 Basophils # (Manual) 0.0 10^3/uL (0-0.1) 06/15/20 05:15 Differential Comment MANUAL DIFFERENTIAL 06/15/20 05:15 Manual Slide Review Indicated 06/12/20 10:29 Platelet Estimate NORMAL (130-450,000) (NORMAL) 06/15/20 05:15 RBC Morph Micro Appear NORMAL APPEARANCE (NORMAL) 06/15/20 05:15 PT 12.4 secs (9.9-12.6) 06/12/20 10:45 INR 1.1 (0.8-1.2) 06/12/20 10:45 APTT 25.1 secs (24.9-33.3) 06/12/20 10:45 Sodium 141 mmol/L (135-145) 06/15/20 05:15 Potassium 4.1 mmol/L (3.5-5.0) 06/15/20 05:15 Chloride 107 mmol/L (101-111) 06/15/20 05:15 Carbon Dioxide 25 mmol/L (21-32) 06/15/20 05:15 Anion Gap 9.0 (6-13) 06/15/20 05:15 BUN 6 mg/dL (6-20) 06/15/20 05:15 Creatinine 0.8 mg/dL (0.4-1.0) 06/15/20 05:15 Estimated GFR (MDRD) 72 (>89) L 06/15/20 05:15 Glucose 100 mg/dL (70-100) 06/15/20 05:15 Lactic Acid 2.0 mmol/L (0.5-2.2) 06/12/20 11:09 Calcium 8.6 mg/dL (8.5-10.3) 06/15/20 05:15 Total Bilirubin 0.5 mg/dL (0.2-1.0) 06/12/20 10:45 AST 24 IU/L (10-42) 06/12/20 10:45 ALT 22 IU/L (10-60) 06/12/20 10:45 Alkaline Phosphatase 60 IU/L (42-121) 06/12/20 10:45 Total Protein 6.1 g/dL (6.7-8.2) L 06/12/20 10:45 Albumin 3.6 g/dL (3.2-5.5) 06/12/20 10:45 Globulin 2.5 g/dL (2.1-4.2) 06/12/20 10:45 Albumin/Globulin Ratio 1.4 (1.0-2.2) 06/12/20 10:45 Lipase 26 U/L (22-51) 06/12/20 10:45 Urine Color YELLOW 06/12/20 10:45 Urine Clarity CLEAR (CLEAR) 06/12/20 10:45 Urine pH 8.0 PH (5.0-7.5) H 06/12/20 10:45 Ur Specific [place] 1.020 (1.002-1.030) 06/12/20 10:45 Urine Protein NEGATIVE mg/dL (NEGATIVE) 06/12/20 10:45 Urine Glucose (UA) NEGATIVE mg/dL (NEGATIVE) 06/12/20 10:45 Urine Ketones NEGATIVE mg/dL (NEGATIVE) 06/12/20 10:45 Urine Occult Blood LARGE (NEGATIVE) H 06/12/20 10:45 Urine Nitrite NEGATIVE (NEGATIVE) 06/12/20 10:45 Urine Bilirubin NEGATIVE (NEGATIVE) 06/12/20 10:45 Urine Urobilinogen 0.2 (NORMAL) E.U./dL (NORMAL) 06/12/20 10:45 Ur Leukocyte Esterase NEGATIVE (NEGATIVE) 06/12/20 10:45 Urine RBC 0-5 /HPF (0-5) 06/12/20 10:45 Urine WBC 0-3 /HPF (0-5) 06/12/20 10:45 Ur Squamous Epith Cells FEW Squamous (<= Few) 06/12/20 10:45 Urine Bacteria Few /HPF (None Seen) 06/12/20 10:45 Ur Microscopic Review INDICATED 06/12/20 10:45 Urine Culture Comments NOT INDICATED 06/12/20 10:45 Stl C. diff Tox B Gene NEGATIVE (NEGATIVE) 06/12/20 11:16 Blood Type A POSITIVE 06/12/20 10:45 Blood Type Recheck A POSITIVE 06/12/20 11:09 Antibody Screen NEGATIVE 06/12/20 10:45 Crossmatch IS Only See Detail 06/12/20 10:45
--- NOTE | 2020-06-15 18:26 | ANESTHESIA POST OP EVALUATION ---
Anesthesia Post Eval - Post Anesthesia Eval Vitals: Last Vital Signs Temp 36.4 C L 06/15/20 18:20 Pulse 65 06/15/20 18:20 Resp 20 06/15/20 18:20 BP 118/60 06/15/20 18:20 Pulse Ox 100 06/15/20 18:20 CV Function Including HR & BP: positive: Stable Pain Control: positive: Satisfactory Nausea & Vomiting: positive: Negative Mental Status: positive: Patient Participates Respiratory Status: Airway Patent Hydration Status: Satisfactory Anesthesia Complications: positive: None
[2020-06-15] MEDS ORDERED: ePHEDrine 50 MG/ML VIAL IVP PRN (18:31)
[2020-06-15] MEDS ORDERED: fentaNYL 100 MCG/2 ML VIAL IVP PRN (18:31)
[2020-06-15] MEDS ORDERED: ATROPINE ABBOJECT 1 MG/10 ML SYRINGE IVP PRN (18:31)
[2020-06-15] MEDS ORDERED: NALOXONE 0.4 MG/ML VIAL IVP PRN (18:31)
[2020-06-15] MEDS ORDERED: ONDANSETRON 4 MG/2 ML VIAL IVP PRN (18:31)
[2020-06-15] MEDS ORDERED: MORPHINE 2 MG/ML CARPUJECT IVP PRN (18:31)
[2020-06-15] MEDS ORDERED: METOCLOPRAMIDE 10 MG/2 ML VIAL IVP PRN (18:31)
[2020-06-15] MEDS ORDERED: HYDROmorphone 0.5 MG/0.5 ML SYRINGE IVP PRN (18:31)
[2020-06-15] MEDS ORDERED: LACTATED RINGERS 1,000 ML IV ONE (18:45)
[2020-06-15] MEDS ORDERED: LACTATED RINGERS 1,000 ML IV SCH (19:00)
--- NOTE | 2020-06-15 19:08 | PROVIDER PROGRESS NOTE ---
Progress Note 69-year-old female presenting with suspected colitis with associated gastrointestinal bleed for whom upper and lower endoscopy was performed. Findings are as follows from the colonoscopy: 1. Internal hemorrhoids, nonbleeding 2. Extensive left sigmoid and descending colonic diverticulosis with associated stricturing benign traversable endoscopically 3. No evident colitis throughout the entirety of the examined colon 4. Normal terminal ileum, ileocecal valve, and cecum. 5. Terminal ileal biopsies performed again with no gross evidence of enteritis or terminal ileitis 6. Random colonic biopsies obtained to rule out occult colitis/microscopic colitis 7. No stigmata of recent or active bleeding or diverticular bleed appreciated 8. Stool studies obtained to rule out infectious cause of the patient's presumptive colitis. Upper endoscopy performed, with findings as follows: 1. Normal duodenum random biopsies obtained 2. Normal stomach with no evidence of gastritis random biopsies obtained 3. GE junction with no gross abnormality biopsied 4. Hiatal hernia appreciated on retroflexion Would recommend outpatient H&H to check. Would also recommend follow-up with stool studies. Would continue with low residue diet. Should have outpatient surgery follow-up to discuss pathology. Okay to discharge from a surgical standpoint with plan follow-up. Please note that voice recognition software was used to transcribe this note and inadvertent errors might persist in spite of review and editing. I am obliged to you for your attention. I am thankful to you for allowing me to participate with you in this care of this patient.
--- NOTE | 2020-06-15 19:39 | DISCHARGE SUMMARY ---
Discharge Summary Admit Date: 06/12/20 Discharge Date: 06/15/20 Discharging Provider: Grace Benjamin Primary Care Provider: Errol Shelton Code Status: Attempt Resuscitation Condition at Discharge: Stable Discharge Disposition: 01 Home, Self Care - DIAGNOSES Admission Diagnoses: 1. Bloody diarrhea 2. Chronic pain 3. Depression Discharge Diagnoses with Status of Each Condition: 1. Bloody diarrhea: Resolved 2. Chronic pain: Chronic 3. Depression: Chronic - HPI History of Present Illness: Per Dr. Beck's H&P: 69-year-old white female who has irritable bowel syndrome. For decades she will get episodes of sudden onset of severe abdominal cramping. Then the diarrhea comes. Will last few hours to a few days. Accompanied by sweats, nausea. She has had 3 colonoscopies so far. The second colonoscopy had "an ulcer" that was followed up by a CT scan. Pathology was negative she remembers. CT scan showed "a spot" with a subsequent follow-up CT scan where everything was "good". The third colonoscopy was negative. All of them have showed diverticulosis. She is due to have another colonoscopy same around 2018 but has not done one yet. [place] just told her to have a scheduled appointment soon. She is not had any recent travel. She just ate at [employer] last . Friday at 1 in the morning she woke up in the middle the night with severe abdominal cramping. Thought she was having a normal bowel movement but when she wiped there was copious amounts of blood in the toilet and on the toilet paper. No fever, no chills. The abdominal pain was gone. The next day she had a normal bowel movement. Then on Friday she began having crampy abdominal pain again. She is had a few bowel movements that are with blood in them. But also very watery with almost no stool in them. No fever no chills just crampy waxing and waning pain. She came to the emergency room where she was evaluated by Dr. Burris. Temperature is 36.8. Pulse was 119. Blood pressure 123/76. Respirations 18 and 100% on room air. However, he describes her as pale, and hypotensive.He was alarmed enough at her appearance that he thought she was having a GI bleed and typed and crossed her immediately. She received dexamethasone, fentanyl, Dilaudid, metronidazole, 4 L of fluid wide open with Zofran and tranexamic acid. She stabilized with that. And her lab work came back with a hemoglobin of 12.3. White cell count was not elevated.CT of the abdomen had slight wall thickening of the mid transverse bowel to the distal descending colon. Numerous diverticuli. Rectum diffusely decompressed. Trace inflammatory changes seen in the left paracolic gutter. No diverticulitis, or acute changes. There appears to be colon spasm that was being seen. She also has a moderate sized hiatal hernia. Hospitalist service is being asked to admit the patient for new onset diarrhea, bloody stool, and colitis versus infection. - CONSULTS | PROCEDURES Consultations: General Surgery: Dr. Eng Procedures: An EGD and colonoscopy were done which were largely unremarkable. - HOSPITAL COURSE Hospital Course: She was placed on a clear liquid diet while receiving IV hydration. Her hemoglobin was monitored throughout her stay. There was a minimal drop from 12.8 down to 10.4. General surgery was consulted for colonoscopy. She was also given Flagyl antibiotics during her stay. Test for C. difficile was negative. Stool cultures have been no growth to date. The colonoscopy was unremarkable. Patient is being discharged shortly after the colonoscopy. She was advised to slowly advance diet as tolerated. There is time she is to attempt eating today after discharge would be 10 PM. She is to follow-up with her primary care physician within 7 days for a CBC for hemoglobin check. - ALLERGIES Allergies/Adverse Reactions: Allergies Allergy/AdvReac Type Severity Reaction Status Date / Time No Known Drug Allergies Allergy Verified 06/12/20 10:22 - MEDICATIONS Home Medications: Ambulatory Orders Medication Instructions Recorded Confirmed Fluoxetine HCl [Prozac] 40 mg PO DAILY 06/12/20 06/12/20 Gabapentin [Neurontin] 400 mg PO QPM 06/12/20 06/12/20 Melatonin 10 mg PO QPM 06/12/20 06/12/20 Simethicone [Gas Relief] 180 mg PO BID 06/12/20 06/12/20 Simvastatin 40 mg PO QPM 06/12/20 06/12/20 - PHYSICAL EXAM AT DISCHARGE General Appearance: positive: Alert, Mild distress Eyes Bilateral: positive: PERRL, EOMI ENT: positive: No signs of dehydration Neck: positive: No JVD, Trachea midline Cardiovascular: positive: Regular rate & rhythm Abdomen: positive: Non-tender, Nml bowel sounds, No distention. negative: Guarding, Rebound Extremities: positive: Non-tender, Full ROM, Nml appearance, No pedal edema Neurologic/Psychiatric: positive: Oriented x3, Mood/affect nml - LABS Result Diagrams: 06/15/20 05:15 06/15/20 05:15 - FOLLOW UP Follow Up: Primary care physician Dr. Errol Shelton within 1 week - TIME SPENT Time Spent in Discharge (Minutes): 25
--- NOTE | 2020-06-15 19:42 | Discharge Plan ---
Discharge Plan Problem Reviewed?: Yes Disposition: 01 Home, Self Care Condition: Stable Diet: Soft (Then advance to regular as tolerated) Activity Restrictions: Activity as Tolerated Health Concerns: You were admitted for a primary complaint of bloody diarrhea. CT scan done at the time did not show any ischemic colitis. You had stool studies done which included cultures, and test for specific bacteria. This results is still pending. However the test for C. difficile was negative. Your hemoglobin was monitored during your stay. It was mostly stable around 10-12 throughout your stay in the hospital. You underwent a colonoscopy on June 15, 2020 which was normal. The only findings were diverticuli present. No further intervention or treatment is needed at the moment. We will advance diet as tolerated upon discharge at home. Follow-up with your primary care physician for an outpatient hemoglobin check to ensure that you are not having a further decrease in your hemoglobin. Plan of Treatment: You were admitted for a primary complaint of bloody diarrhea. CT scan done at the time did not show any ischemic colitis. You had stool studies done which included cultures, and test for specific bacteria. This results is still pending. However the test for C. difficile was negative. Your hemoglobin was monitored during your stay. It was mostly stable around 10-12 throughout your stay in the hospital. You underwent a colonoscopy on June 15, 2020 which was normal. The only findings were diverticuli present. No further intervention or treatment is needed at the moment. We will advance diet as tolerated upon discharge at home. Follow-up with your primary care physician for an outpatient hemoglobin check to ensure that you are not having a further decrease in your hemoglobin. Care Goals: You were admitted for a primary complaint of bloody diarrhea. CT scan done at the time did not show any ischemic colitis. You had stool studies done which included cultures, and test for specific bacteria. This results is still pending. However the test for C. difficile was negative. Your hemoglobin was monitored during your stay. It was mostly stable around 10-12 throughout your stay in the hospital. You underwent a colonoscopy on June 15, 2020 which was normal. The only findings were diverticuli present. No further intervention or treatment is needed at the moment. We will advance diet as tolerated upon discharge at home. The earliest you are to have something to eat today June 15, 2020 is 9:30 PM. Follow-up with your primary care physician for an outpatient hemoglobin check to ensure that you are not having a further decrease in your hemoglobin. Assessment: The improved plan of care was discussed with the patient with her at bedside. They expressed understanding. No Smoking: If you smoke, Please STOP! Call for help. Follow-up with: Errol Shelton MD [Primary Care Provider] -
[2020-06-15 20:04] VITALS: BP 122/58
[2020-06-15] MEDS ORDERED: FAMOTIDINE 20 MG TABLET PO SCH (21:00)
== END 2020-06-15 20:35 | disposition home or self-care (01) | DRG 379 ==
LOC: ED 10:18 → MS2 12:55
PROVIDERS: ADMIT Specialist; ATTEND Internal Medicine
PROC: 0DB98ZX Excision of Duodenum, Via Natural or Artificial Opening Endoscopic, Diagnostic (ICD-10-PCS; 2020-06-15)
PROC: 0DB68ZX Excision of Stomach, Via Natural or Artificial Opening Endoscopic, Diagnostic (ICD-10-PCS; 2020-06-15)
PROC: 0DBE8ZX Excision of Large Intestine, Via Natural or Artificial Opening Endoscopic, Diagnostic (ICD-10-PCS; principal; 2020-06-15 15:30)
PROC: 0DB58ZX Excision of Esophagus, Via Natural or Artificial Opening Endoscopic, Diagnostic (ICD-10-PCS; 2020-06-15 15:30)
DX: K52.9 Noninfective gastroenteritis and colitis, unspecified (principal); I95.9 Hypotension, unspecified; K57.31 Diverticulosis of large intestine without perforation or abscess with bleeding; F32.9 Major depressive disorder, single episode, unspecified; K44.9 Diaphragmatic hernia without obstruction or gangrene; G89.4 Chronic pain syndrome; M54.30 Sciatica, unspecified side; E78.00 Pure hypercholesterolemia, unspecified; K64.8 Other hemorrhoids; Z98.1 Arthrodesis status; Z79.899 Other long term (current) drug therapy
CPT/HCPCS: 36415; 36430; 74177; 80048; 80053; 81001; 81599; 83605; 83690; 85025; 85610; 85730; 86850; 86900; 86901; 86920; 87015; 87040; 87272; 87329; 87493; 96361; 96365; 96375; 99291; A9270; J0131; J7120; P9016; Q9967; 81003; 87045; 87046; 87086

== ENCOUNTER 2020-06-23 08:00 | Outpatient (CLI) | payer MEDICARE ==
[2020-06-23 19:04] LABS: BASOPHILS # (AUTO) 0.1 10^3/uL (0.0-0.1); BASOPHILS % (AUTO) 0.8 %; EOSINOPHILS # (AUTO) 0.3 10^3/uL (0.0-0.7); EOSINOPHILS % (AUTO) 2.9 %; HGB - HEMOGLOBIN 12.4 g/dL (12.0-16.0); LYMPHOCYTES # (AUTO) 4.7 10^3/uL (1.5-3.5); MEAN CORPUSCULAR HEMOGLOBIN 29.6 pg (27.0-31.0); MEAN CORPUSCULAR HGB CONC 30.9 g/dL (32.0-36.0); MEAN CORPUSCULAR VOLUME 95.7 fL (81.0-99.0); MEAN PLATELET VOLUME 10.5 fL (7.9-10.8); MONOCYTES % (AUTO) 9.5 %; NEUTROPHILS # (AUTO) 4.1 10^3/uL (1.5-6.6); NEUTROPHILS % (AUTO) 40.2 %; PLT - PLATELET COUNT 334 10^3/uL (130-450); RED BLOOD COUNT 4.19 10^6/uL (4.20-5.40); WHITE BLOOD COUNT 10.2 x10^3/uL (4.8-10.8)
== END 2020-06-23 23:59 | disposition home or self-care (01) ==
LOC: LAB.WCP 08:00
PROVIDERS: ATTEND Family Medicine
DX: R03.1 Nonspecific low blood-pressure reading (principal)
CPT/HCPCS: 36415; 85025

== ENCOUNTER 2020-07-21 11:22 | Outpatient (CLI) | payer MEDICARE | END 2020-07-21 23:59 | disposition home or self-care (01) | LOC: LAB.R 11:22 | PROVIDERS: ATTEND Internal Medicine | DX: R07.81 Pleurodynia (principal) | CPT/HCPCS: 87086 ==

== ENCOUNTER 2020-07-21 15:42 | Outpatient (CLI) | payer MEDICARE ==
[2020-07-21 16:01] LABS: BASOPHILS # (AUTO) 0.1 10^3/uL (0.0-0.1); BASOPHILS % (AUTO) 0.6 %; BILIRUBIN,URINE NEGATIVE (NEGATIVE); EOSINOPHILS # (AUTO) 0.1 10^3/uL (0.0-0.7); EOSINOPHILS % (AUTO) 1.4 %; GLUCOSE, URINE (UA) NEGATIVE (NEGATIVE); HGB - HEMOGLOBIN 13.8 g/dL (12.0-16.0); KETONES,URINE (UA) NEGATIVE (NEGATIVE); LEUKOCYTE ESTERASE, URINE SMALL (NEGATIVE); LYMPHOCYTES % (AUTO) 45.2 %; MEAN CORPUSCULAR HEMOGLOBIN 30.5 pg (27.0-31.0); MEAN CORPUSCULAR HGB CONC 33.2 g/dL (32.0-36.0); MEAN CORPUSCULAR VOLUME 91.8 fL (81.0-99.0); MEAN PLATELET VOLUME 9.6 fL (7.9-10.8); MONOCYTES # (AUTO) 0.4 10^3/uL (0.0-1.0); NEUTROPHILS # (AUTO) 4.2 10^3/uL (1.5-6.6); NEUTROPHILS % (AUTO) 47.6 %; NITRITE,URINE NEGATIVE (NEGATIVE); OCCULT BLOOD,URINE TRACE-INTA (NEGATIVE); PLT - PLATELET COUNT 255 10^3/uL (130-450); PROTEIN,URINE NEGATIVE (NEGATIVE); RED BLOOD COUNT 4.53 10^6/uL (4.20-5.40); RED CELL DISTRIBUTION WIDTH 12.9 % (12.0-15.0); UROBILINOGEN,URINE 0.2 (NORMAL) E.U./dL (NORMAL); WHITE BLOOD COUNT 8.8 x10^3/uL (4.8-10.8)
[2020-07-21 16:09] LABS: CLARITY,URINE HAZY (CLEAR)
[2020-07-21 16:16] LABS: ALBUMIN 4.5 g/dL (3.2-5.5); ALBUMIN/GLOBULIN RATIO 1.6 (1.0-2.2); ALKALINE PHOSPHATASE 60 IU/L (42-121); ALT ALANINE AMINOTRANSFERASE 19 IU/L (10-60); AST ASPARTATE AMINOTRANSFERASE 25 IU/L (10-42); BILIRUBIN,TOTAL 0.3 mg/dL (0.2-1.0); BUN - BLOOD UREA NITROGEN 11 mg/dL (6-20); CARBON DIOXIDE - CO2 26 mmol/L (21-32); CHLORIDE 102 mmol/L (101-111); CHOL/HDL RATIO 2.9 (<4.4); CHOLESTEROL 277 mg/dL; CREATININE 0.8 mg/dL (0.4-1.0); GLUCOSE 111 mg/dL (70-100); HDL CHOLESTEROL 94 mg/dL; LDL CHOLESTEROL,CALCULATED 160 mg/dL; LDL/HDL RATIO 1.7 (<4.4); SODIUM 138 mmol/L (135-145); TOTAL PROTEIN 7.3 g/dL (6.7-8.2); VLDL CHOLESTEROL 23 mg/dL
[2020-07-21 16:27] LABS: BACTERIA,URINE Rare /HPF (None Seen); RBC,URINE 0-5 /HPF (0-5); SQUAMOUS EPITHELIAL CELL,UR FEW Squamous (<= Few)
--- NOTE | 2020-07-23 08:24 | XRAY Report ---
PROCEDURE: Thoracic Spine 3 View INDICATIONS: RIB PAIN LEFT SIDED TECHNIQUE: 3 views of the thoracic spine were acquired. COMPARISON: None. FINDINGS: Bones: In this patient with this given history, scrutiny is given to the visualized ribs. No rib abn ormality is detected. Only 11 pairs of ribs are seen. No fractures or dislocations. No suspicious bony lesions. No significant rib abnormality is seen. S- shaped scoliotic curvature is incidentally noted. Lower cervical spine fixation hardware is seen. Ag e-appropriate degenerative changes are seen. Soft tissues: No paravertebral stripe thickening. IMPRESSION: No focal rib abnormality is seen. Only 11 pairs of ribs can be seen. If there is strong clinical concern for a rib abnormality, then please consider a dedicated rib serie s or chest CT for further evaluation. S-shaped scoliosis. Lower cervical spine fixation hardware. Reviewed by: Vijay Salinas MD on 07/23/2020 7:23 AM [place] Approved by: Vijay Salinas MD on 07/23/2020 7:23 AM [facility] Station ID: [id number]
== END 2020-07-21 15:43 | disposition home or self-care (01) ==
LOC: DI 15:42
PROVIDERS: ATTEND Internal Medicine
DX: R07.81 Pleurodynia (principal); E78.5 Hyperlipidemia, unspecified; M41.84 Other forms of scoliosis, thoracic region
CPT/HCPCS: 36415; 72072; 80053; 80061; 81001; 83721; 85025; 87086

== ENCOUNTER 2020-07-26 07:36 | Outpatient (CLI) | payer MEDICARE ==
--- NOTE | 2020-07-26 12:35 | XRAY Report ---
PROCEDURE: Ribs 2 View LT INDICATIONS: LEFT SIDED RIB PAIN TECHNIQUE: 3 views of the left ribs were acquired. COMPARISON: None FINDINGS: Surgical changes and devices: None. Bones and chest wall: No fractures or dislocations. No suspicious bony lesions. Overlying soft tis sues appear unremarkable. Lungs and pleura: The visualized lung appears clear. No pleural effusions or pneumothorax are visib le. IMPRESSION: No acute trauma found. Delayed plain films may assist in identifying nondisplaced rib fractures that are not initially visualized by plain film imaging. Follow-up nuclear medicine bone scan can also caitlin ntify a previously hidden injury. Reviewed by: Godwin Alas MD on 07/26/2020 12:34 PM PST Approved by: Godwin Alas MD on 07/26/2020 12:34 PM PST Station ID: [id number]
== END 2020-07-26 23:59 | disposition home or self-care (01) ==
LOC: DI.WCP 07:36
PROVIDERS: ATTEND Internal Medicine
DX: R07.81 Pleurodynia (principal)

== ENCOUNTER 2020-08-14 13:15 | Outpatient (CLI) | payer MEDICARE ==
--- NOTE | 2020-08-15 13:39 | Mammography Report ---
BILATERAL DIGITAL SCREENING MAMMOGRAM 3D/2D: 08/14/2020 CLINICAL: Routine screening. No prior exams were available for comparison. The tissue of both breasts is predominantly fatty. There is a possible 0.4 cm irregular focal asymmetry in the left breast at 5 o'clock middle depth. T here is possible architectural distortion associated with the focal asymmetry. This is best seen on the craniocaudal view. No other significant masses, calcifications, or other findings are seen in either breast. IMPRESSION: INCOMPLETE: NEEDS ADDITIONAL IMAGING EVALUATION The possible 0.4 cm irregular focal asymmetry in the left breast is indeterminate. Additional views with possible ultrasound are recommended. This exam was interpreted at Station ID: [id number]. NOTE: For mammograms, a report in lay terms will be sent to the patient. Approximately 15% of breast malignancies will not be visualized mammographically. In the management of a palpable breast mass, a negative mammogram must not discourage biopsy of a clinically suspicious lesion. Electronically Signed By: Harshad Koch M.D. aty/:08/14/2020 14:04:05 ACR BI-RADS Category 0: Incomplete 3340F PARENCHYMAL PATTERN: (F) - The breast(s) demonstrate(s) diffuse fatty replacement. BI-RADS CATEGORY: (0) - 0 Mammo and [place] [id number] Immediate follow-up LATERALITY: (L)
== END 2020-08-14 13:16 | disposition home or self-care (01) ==
LOC: DI.N 13:15
DX: Z12.31 Encounter for screening mammogram for malignant neoplasm of breast (principal); R92.8 Other abnormal and inconclusive findings on diagnostic imaging of breast
CPT/HCPCS: 77063; 77067

== ENCOUNTER 2020-10-05 10:54 | Outpatient (CLI) | payer MEDICARE ==
--- NOTE | 2020-10-06 07:41 | Mammography Report ---
UNILATERAL LEFT DIGITAL DIAGNOSTIC MAMMOGRAM 3D/2D: 10/05/2020 CLINICAL: Patient returns today to evaluate an asymmetry in left breast. Comparison is made to exam dated: 08/14/2020 mammogram - [facility]. The tissue o f left breast is predominantly fatty. There is a possible benign 0.4 cm irregular focal asymmetry in the left breast at 5 o'clock middle de pth on screening mammogram. This is not seen in additional views. No other significant masses or calcifications are seen in the breast. IMPRESSION: BENIGN There is no mammographic evidence of malignancy. Return to annual mammogram screening schedule is rec ommended. This exam was interpreted at Station ID: [id number]. NOTE: For mammograms, a report in lay terms will be sent to the patient. Approximately 15% of breast malignancies will not be visualized mammographically. In the management of a palpable breast mass, a negative mammogram must not discourage biopsy of a clinically suspicious lesion. Electronically Signed By: Manuel Hooper acr/:10/05/2020 11:58:23 ACR BI-RADS Category 2: Benign Finding(s) 3342F PARENCHYMAL PATTERN: (F) - The breast(s) demonstrate(s) diffuse fatty replacement. BI-RADS CATEGORY: (2) - 2 Mammogram [id number] return to screening LATERALITY: (B)
== END 2020-10-05 10:55 | disposition home or self-care (01) ==
LOC: DI 10:54
PROVIDERS: ATTEND Family Medicine
DX: R92.8 Other abnormal and inconclusive findings on diagnostic imaging of breast (principal)

== ENCOUNTER 2021-04-11 13:15 | Outpatient (CLI) | payer MEDICARE ==
[2021-04-11 18:05] LABS: BASOPHILS # (AUTO) 0.1 10^3/uL (0.0-0.1); BASOPHILS % (AUTO) 0.6 %; EOSINOPHILS # (AUTO) 0.4 10^3/uL (0.0-0.7); EOSINOPHILS % (AUTO) 4.4 %; HCT - HEMATOCRIT 44.7 % (37.0-47.0); HGB - HEMOGLOBIN 14.1 g/dL (12.0-16.0); LYMPHOCYTES # (AUTO) 4.2 10^3/uL (1.5-3.5); LYMPHOCYTES % (AUTO) 52.2 %; MEAN CORPUSCULAR HEMOGLOBIN 29.3 pg (27.0-31.0); MEAN CORPUSCULAR HGB CONC 31.5 g/dL (32.0-36.0); MEAN CORPUSCULAR VOLUME 92.7 fL (81.0-99.0); MEAN PLATELET VOLUME 10.2 fL (7.9-10.8); MONOCYTES # (AUTO) 0.5 10^3/uL (0.0-1.0); MONOCYTES % (AUTO) 6.4 %; NEUTROPHILS # (AUTO) 2.9 10^3/uL (1.5-6.6); NEUTROPHILS % (AUTO) 36.2 %; PLT - PLATELET COUNT 310 10^3/uL (130-450); RED BLOOD COUNT 4.82 10^6/uL (4.20-5.40); WHITE BLOOD COUNT 8.1 x10^3/uL (4.8-10.8)
[2021-04-11 18:44] LABS: ALBUMIN 4.3 g/dL (3.2-5.5); ALBUMIN/GLOBULIN RATIO 1.7 (1.0-2.2); ALKALINE PHOSPHATASE 67 IU/L (42-121); ALT ALANINE AMINOTRANSFERASE 22 IU/L (10-60); AST ASPARTATE AMINOTRANSFERASE 25 IU/L (10-42); BILIRUBIN,TOTAL 0.8 mg/dL (0.2-1.0); BUN - BLOOD UREA NITROGEN 17 mg/dL (6-20); CALCIUM 9.5 mg/dL (8.5-10.3); CARBON DIOXIDE - CO2 29 mmol/L (21-32); CHLORIDE 101 mmol/L (101-111); CHOL/HDL RATIO 2.2 (<4.4); CHOLESTEROL 192 mg/dL; GFR - MDRD 55 (>89); GLUCOSE 94 mg/dL (70-100); HDL CHOLESTEROL 86 mg/dL; LDL CHOLESTEROL,CALCULATED 89 mg/dL; POTASSIUM 4.3 mmol/L (3.5-5.0); SODIUM 140 mmol/L (135-145); TOTAL PROTEIN 6.8 g/dL (6.7-8.2); TRIGLYCERIDES 83 mg/dL; VLDL CHOLESTEROL 17 mg/dL
== END 2021-04-11 23:59 | disposition home or self-care (01) ==
LOC: LAB.WCP 13:15
PROVIDERS: ATTEND Family Medicine
DX: E78.5 Hyperlipidemia, unspecified (principal); G25.81 Restless legs syndrome; Z79.899 Other long term (current) drug therapy
CPT/HCPCS: 36415; 80053; 80061; 82728; 83721; 85025

== ENCOUNTER 2021-04-20 12:14 | Outpatient (CLI) | payer MEDICARE | END 2021-04-20 23:59 | disposition home or self-care (01) | LOC: LAB.N 12:14 | PROVIDERS: ATTEND Nurse Practitioner | DX: N39.0 Urinary tract infection, site not specified (principal) | CPT/HCPCS: 87086; 87181 ==

== ENCOUNTER 2021-07-20 14:10 | Outpatient (CLI) | payer MEDICARE ==
--- NOTE | 2021-07-24 12:06 | DEXA Report ---
PROCEDURE: Dexa Spine and/or Hip INDICATIONS: POST MENOPAUSAL TECHNIQUE: Dual energy x-ray absorptiometry (DXA) was performed on a [employer] System. Regions measur ed are the AP Spine, femoral neck, and if needed forearm. COMPARISON: None FINDINGS: Lumbar Spine: Bone Mineral Density 0.978 g/cm/cm,T score -1.7, osteopenia Left Femoral Neck: Bone Mineral Density 0.775 g/cm/cm, T score -1.8, osteopenia (T score greater or equal to -1.0: NORMAL) (T score from -1.1 to -2.4: OSTEOPENIA) (T score less than or equal to -2.5 to: OSTEOPOROSIS) Impression: OSTEOPENIA. Patient is at increased risk for fracture. Patients with diagnosis of osteoporosis or osteopenia should have regular bone mineral density assess ment. For those eligible for Medicare, routine testing is allowed once every 2 years. Testing frequ ency can be increased for patients who have rapidly progressing disease or for those who are receivin g medical therapy to restore bone mass. Reviewed by: Harshad Koch MD on 07/24/2021 12:04 PM PDT Approved by: Harshad Koch MD on 07/24/2021 12:04 PM PDT Station ID: [id number]
== END 2021-07-20 14:11 | disposition home or self-care (01) ==
LOC: DI 14:10
PROVIDERS: ATTEND Internal Medicine
DX: M85.88 Other specified disorders of bone density and structure, other site (principal); Z78.0 Asymptomatic menopausal state

== ENCOUNTER 2021-10-01 14:13 | Outpatient (CLI) | payer MEDICARE ==
--- NOTE | 2021-10-02 17:27 | Mammography Report ---
BILATERAL DIGITAL SCREENING MAMMOGRAM 3D/2D: 10/01/2021 CLINICAL: Routine screening. Comparison is made to exams dated: 10/05/2020 mammogram and 08/14/2020 mammogram - [facility]. The tissue of both breasts is predominantly fatty. No significant masses, calcifications, or other findings are seen in either breast. There has been no significant interval change. IMPRESSION: NEGATIVE There is no mammographic evidence of malignancy. A 1 year screening mammogram is recommended. This exam was interpreted at Station ID: [id number]. NOTE: For mammograms, a report in lay terms will be sent to the patient. Approximately 15% of breast malignancies will not be visualized mammographically. In the management of a palpable breast mass, a negative mammogram must not discourage biopsy of a clinically suspicious lesion. Electronically Signed By: Arnold Chaidez M.D. ar/penrad:10/01/2021 16:15:26 ACR BI-RADS Category 1: Negative 3341F PARENCHYMAL PATTERN: (F) - The breast(s) demonstrate(s) diffuse fatty replacement. BI-RADS CATEGORY: (1) - 1 RECOMMENDATION: (ANNUAL) - Recommend routine annual screening mammography. [id number] 1 year screening LATERALITY: (B)
== END 2021-10-01 14:14 | disposition home or self-care (01) ==
LOC: DI 14:13
PROVIDERS: ATTEND Internal Medicine
DX: Z12.31 Encounter for screening mammogram for malignant neoplasm of breast (principal)

== ENCOUNTER 2021-11-29 12:35 | Outpatient (CLI) | payer MEDICARE ==
[2021-11-29 13:01] LABS: BASOPHILS % (AUTO) 0.5 %; EOSINOPHILS # (AUTO) 0.2 10^3/uL (0.0-0.7); EOSINOPHILS % (AUTO) 2.2 %; HCT - HEMATOCRIT 42.6 % (37.0-47.0); LYMPHOCYTES # (AUTO) 4.7 10^3/uL (1.5-3.5); LYMPHOCYTES % (AUTO) 60.1 %; MEAN CORPUSCULAR HEMOGLOBIN 29.7 pg (27.0-31.0); MEAN CORPUSCULAR HGB CONC 32.9 g/dL (32.0-36.0); MEAN CORPUSCULAR VOLUME 90.3 fL (81.0-99.0); MEAN PLATELET VOLUME 9.9 fL (7.9-10.8); MONOCYTES # (AUTO) 0.5 10^3/uL (0.0-1.0); MONOCYTES % (AUTO) 5.9 %; NEUTROPHILS # (AUTO) 2.4 10^3/uL (1.5-6.6); PLT - PLATELET COUNT 232 10^3/uL (130-450); RED BLOOD COUNT 4.72 10^6/uL (4.20-5.40); RED CELL DISTRIBUTION WIDTH 13.2 % (12.0-15.0); WHITE BLOOD COUNT 7.8 x10^3/uL (4.8-10.8)
[2021-11-29 13:24] LABS: ALBUMIN 4.4 g/dL (3.2-5.5); BILIRUBIN,DIRECT 0.1 mg/dL (0.1-0.5); BILIRUBIN,TOTAL 0.6 mg/dL (0.2-1.0); TOTAL PROTEIN 6.8 g/dL (6.7-8.2)
== END 2021-11-29 12:36 | disposition home or self-care (01) ==
LOC: LAB 12:35
PROVIDERS: ATTEND Podiatrist
DX: B35.1 Tinea unguium (principal)
CPT/HCPCS: 36415; 80076; 85025

== ENCOUNTER 2022-01-10 08:00 | Outpatient (CLI) | payer MEDICARE ==
[2022-01-10 22:47] LABS: BILIRUBIN,URINE NEGATIVE (NEGATIVE); GLUCOSE, URINE (UA) NEGATIVE (NEGATIVE); KETONES,URINE (UA) TRACE mg/dL (NEGATIVE); LEUKOCYTE ESTERASE, URINE SMALL (NEGATIVE); NITRITE,URINE NEGATIVE (NEGATIVE); OCCULT BLOOD,URINE TRACE-INTA (NEGATIVE); PROTEIN,URINE NEGATIVE (NEGATIVE); UROBILINOGEN,URINE 0.2 (NORMAL) E.U./dL (NORMAL)
[2022-01-10 22:59] LABS: BACTERIA,URINE Few /HPF (None Seen); CLARITY,URINE CLEAR (CLEAR); RBC,URINE 0-5 /HPF (0-5); SQUAMOUS EPITHELIAL CELL,UR RARE Squamous (<= Few); WBC CLUMPS,URINE PRESENT
== END 2022-01-10 23:59 | disposition home or self-care (01) ==
LOC: LAB.S 08:00
PROVIDERS: ATTEND Physician Assistant Medical
DX: R30.0 Dysuria (principal)
CPT/HCPCS: 81001; 87086; 87181

== ENCOUNTER 2022-01-15 10:48 | Outpatient (CLI) | payer MEDICARE ==
[2022-01-15 11:10] LABS: BASOPHILS # (AUTO) 0.1 10^3/uL (0.0-0.1); BASOPHILS % (AUTO) 0.8 %; EOSINOPHILS # (AUTO) 0.2 10^3/uL (0.0-0.7); EOSINOPHILS % (AUTO) 2.2 %; HCT - HEMATOCRIT 40.7 % (37.0-47.0); HGB - HEMOGLOBIN 13.4 g/dL (12.0-16.0); LYMPHOCYTES # (AUTO) 4.2 10^3/uL (1.5-3.5); MEAN CORPUSCULAR HEMOGLOBIN 30.3 pg (27.0-31.0); MEAN CORPUSCULAR HGB CONC 32.9 g/dL (32.0-36.0); MEAN CORPUSCULAR VOLUME 92.1 fL (81.0-99.0); MEAN PLATELET VOLUME 9.8 fL (7.9-10.8); MONOCYTES # (AUTO) 0.6 10^3/uL (0.0-1.0); MONOCYTES % (AUTO) 7.9 %; NEUTROPHILS # (AUTO) 2.2 10^3/uL (1.5-6.6); NEUTROPHILS % (AUTO) 30.7 %; PLT - PLATELET COUNT 255 10^3/uL (130-450); RED BLOOD COUNT 4.42 10^6/uL (4.20-5.40); RED CELL DISTRIBUTION WIDTH 13.3 % (12.0-15.0); WHITE BLOOD COUNT 7.3 x10^3/uL (4.8-10.8)
[2022-01-15 11:19] LABS: CALCIUM 9.3 mg/dL (8.5-10.3); CREATININE 1.3 mg/dL (0.4-1.0); POTASSIUM 4.1 mmol/L (3.5-5.0)
== END 2022-01-15 10:49 | disposition home or self-care (01) ==
LOC: LAB 10:48
PROVIDERS: ATTEND Orthopaedic Surgery Orthopaedic Surgery of the Spine
DX: Z01.818 Encounter for other preprocedural examination (principal)
CPT/HCPCS: 36415; 80048; 85025; 93005

== ENCOUNTER 2022-08-16 08:00 | Outpatient (CLI) | payer MEDICARE | END 2022-08-16 23:59 | disposition home or self-care (01) | LOC: LAB.N 08:00 | PROVIDERS: ATTEND Nurse Practitioner | DX: N39.0 Urinary tract infection, site not specified (principal) | CPT/HCPCS: 87086; 87181 ==

== ENCOUNTER 2023-03-11 11:06 | Outpatient (CLI) | payer MEDICARE ==
[2023-03-11 18:00] LABS: BASOPHILS # (AUTO) 0.1 10^3/uL (0.0-0.1); BASOPHILS % (AUTO) 0.7 %; EOSINOPHILS # (AUTO) 0.1 10^3/uL (0.0-0.7); EOSINOPHILS % (AUTO) 1.9 %; HGB - HEMOGLOBIN 14.2 g/dL (12.0-16.0); LYMPHOCYTES # (AUTO) 4.7 10^3/uL (1.5-3.5); LYMPHOCYTES % (AUTO) 63.1 %; MEAN CORPUSCULAR HEMOGLOBIN 29.7 pg (27.0-31.0); MEAN CORPUSCULAR HGB CONC 32.3 g/dL (32.0-36.0); MEAN CORPUSCULAR VOLUME 92.1 fL (81.0-99.0); MEAN PLATELET VOLUME 10.9 fL (7.9-10.8); MONOCYTES # (AUTO) 0.5 10^3/uL (0.0-1.0); MONOCYTES % (AUTO) 6.1 %; NEUTROPHILS # (AUTO) 2.1 10^3/uL (1.5-6.6); NEUTROPHILS % (AUTO) 27.8 %; PLT - PLATELET COUNT 226 10^3/uL (130-450); RED BLOOD COUNT 4.78 10^6/uL (4.20-5.40); RED CELL DISTRIBUTION WIDTH 13.3 % (12.0-15.0); WHITE BLOOD COUNT 7.4 x10^3/uL (4.8-10.8)
[2023-03-11 18:14] LABS: THYROID STIMULATING HORMONE 2.08 uIU/mL (0.34-5.60)
[2023-03-11 20:54] LABS: ALBUMIN/GLOBULIN RATIO 1.4 (1.0-2.2); ALKALINE PHOSPHATASE 64 IU/L (42-121); ALT ALANINE AMINOTRANSFERASE 19 IU/L (10-60); AST ASPARTATE AMINOTRANSFERASE 26 IU/L (10-42); BILIRUBIN,TOTAL 0.5 mg/dL (0.2-1.0); BUN - BLOOD UREA NITROGEN 18 mg/dL (6-20); CALCIUM 9.1 mg/dL (8.5-10.3); CARBON DIOXIDE - CO2 30 mmol/L (21-32); CHLORIDE 106 mmol/L (101-111); CHOL/HDL RATIO 2.4 (<4.4); CHOLESTEROL 225 mg/dL; CREATININE 0.9 mg/dL (0.4-1.0); GFR - MDRD 62 (>89); GLUCOSE 84 mg/dL (70-100); HDL CHOLESTEROL 95 mg/dL; LDL CHOLESTEROL,CALCULATED 108 mg/dL; LDL/HDL RATIO 1.1 (<4.4); POTASSIUM 4.3 mmol/L (3.5-5.0); SODIUM 143 mmol/L (135-145); TOTAL PROTEIN 6.9 g/dL (6.7-8.2); TRIGLYCERIDES 109 mg/dL; VLDL CHOLESTEROL 22 mg/dL
== END 2023-03-11 11:07 | disposition home or self-care (01) ==
LOC: LAB.N 11:06
PROVIDERS: ATTEND Internal Medicine
DX: E78.5 Hyperlipidemia, unspecified (principal); E55.9 Vitamin D deficiency, unspecified; L30.9 Dermatitis, unspecified; F32.A Depression, unspecified
CPT/HCPCS: 36415; 80053; 80061; 82306; 83721; 84443; 85025

== ENCOUNTER 2023-03-26 11:12 | Outpatient (CLI) | payer MEDICARE ==
--- NOTE | 2023-03-27 12:09 | Mammography Report ---
BILATERAL DIGITAL SCREENING MAMMOGRAM 3D/2D: 03/26/2023 CLINICAL: Routine screening. Comparison is made to exams dated: 10/01/2021 mammogram, 10/05/2020 mammogram, and 08/14/2020 mammogra m - [facility]. Both breasts are almost entirely fatty (category a/<25% glandular tissue). No significant masses, calcifications, or other findings are seen in either breast. There has been no significant interval change. IMPRESSION: NEGATIVE There is no mammographic evidence of malignancy. A 1 year screening mammogram is recommended. Based on the Tyrer Cuzick model (a risk assessment model) the patients lifetime risk is 3.2% and her 10 year risk is 2.0%. According to the ACR, ACS, and NCCN guidelines, an annual breast MRI exam andrea g with mammogram is recommended if the patients lifetime risk is 20% or greater. This exam was interpreted at Station ID: [id number]. NOTE: For mammograms, a report in lay terms will be sent to the patient. Approximately 15% of breast malignancies will not be visualized mammographically. In the management of a palpable breast mass, a negative mammogram must not discourage biopsy of a clinically suspicious lesion. Electronically Signed By: Harshad mera/pieter:03/26/2023 12:01:51 letter sent: No_Letter ACR BI-RADS Category 1: Negative 3341F PARENCHYMAL PATTERN: (F) - The breast(s) demonstrate(s) diffuse fatty replacement. BI-RADS CATEGORY: (1) - 1 Mammogram [id number] 1 year screening LATERALITY: (B)
== END 2023-03-26 11:13 | disposition home or self-care (01) ==
LOC: DI 11:12
PROVIDERS: ATTEND Internal Medicine
DX: Z12.31 Encounter for screening mammogram for malignant neoplasm of breast (principal)

== ENCOUNTER 2023-07-02 14:29 | Outpatient (CLI) | payer MEDICARE | END 2023-07-02 14:30 | disposition home or self-care (01) | LOC: DI 14:29 | PROVIDERS: ATTEND Internal Medicine | DX: Z53.9 Procedure and treatment not carried out, unspecified reason (principal) ==

== ENCOUNTER 2023-08-08 09:52 | Outpatient (CLI) | payer MEDICARE ==
--- NOTE | 2023-08-08 15:48 | DEXA Report ---
PROCEDURE: Dexa Spine and/or Hip INDICATIONS: POSTN MENOPAUSAL TECHNIQUE: Dual energy x-ray absorptiometry (DXA) was performed on a [employer] System. Regions measur ed are the AP Spine, femoral neck, and if needed forearm. COMPARISON: DEXA 07/20/2021 FINDINGS: Lumbar Spine: Bone Mineral Density 1.020 g/cm/cm,T score -1.2, compared to -1.7. However, on prior exam L1-L4 was measured compared to current exam of L1-L3 secondary to new surgical hardware.. 0.708 Left Femoral Neck: Bone Mineral Density -2.4, compared to -2.5 g/cm/cm, T score . Left Hip: Bone Mineral Density 0.779 g/cm/cm,T score -1.8, unchanged. (T score greater or equal to -1.0: NORMAL) (T score from -1.1 to -2.4: OSTEOPENIA) (T score less than or equal to -2.5 to: OSTEOPOROSIS) Impression: By WHO criteria, this patient has osteopenia within the lumbar spine overall decreased noting mild di fference in comparison. However levels L1-L3 do demonstrate improved bone mineral density compared to prior exam as individually measured. High-grade osteopenia compared to low-grade osteoporosis of the left femoral neck and unchanged osteo penia of the left hip. Patients with diagnosis of osteoporosis or osteopenia should have regular bone mineral density assess ment. For those eligible for Medicare, routine testing is allowed once every 2 years. Testing frequ ency can be increased for patients who have rapidly progressing disease or for those who are receivin g medical therapy to restore bone mass. Reviewed by: Lorena Frederick MD on 08/08/2023 3:47 PM PST Approved by: Lorena Frederick MD on 08/08/2023 3:47 PM PST Station ID: [id number]
== END 2023-08-08 09:53 | disposition home or self-care (01) ==
LOC: DI 09:52
PROVIDERS: ATTEND Internal Medicine
DX: Z78.0 Asymptomatic menopausal state (principal); M85.89 Other specified disorders of bone density and structure, multiple sites

== ENCOUNTER 2024-01-05 10:50 | Outpatient (CLI) | payer MEDICARE ==
[2024-01-05 11:16] LABS: ALBUMIN 3.7 g/dL (3.2-5.5); ALKALINE PHOSPHATASE 128 IU/L (42-121); ALT ALANINE AMINOTRANSFERASE 20 IU/L (10-60); AST ASPARTATE AMINOTRANSFERASE 16 IU/L (10-42); BILIRUBIN,DIRECT < 0.10 mg/dL (0.03-0.18); BILIRUBIN,TOTAL 0.3 mg/dL (0.2-1.0); TOTAL PROTEIN 6.5 g/dL (6.4-8.9)
== END 2024-01-05 10:51 | disposition home or self-care (01) ==
LOC: LAB 10:50
PROVIDERS: ATTEND Podiatrist
DX: B35.1 Tinea unguium (principal)
CPT/HCPCS: 36415; 80076

== ENCOUNTER 2024-03-04 11:00 | Outpatient (CLI) | payer MEDICARE ==
[2024-03-04 11:27] LABS: BASOPHILS % (AUTO) 0.6 %; EOSINOPHILS # (AUTO) 0.1 10^3/uL (0.0-0.7); EOSINOPHILS % (AUTO) 2.3 %; HCT - HEMATOCRIT 41.1 % (37.0-47.0); HGB - HEMOGLOBIN 13.2 g/dL (12.0-16.0); LYMPHOCYTES # (AUTO) 3.1 10^3/uL (1.5-3.5); LYMPHOCYTES % (AUTO) 59.4 %; MEAN CORPUSCULAR HEMOGLOBIN 29.2 pg (27.0-31.0); MEAN CORPUSCULAR HGB CONC 32.1 g/dL (32.0-36.0); MEAN CORPUSCULAR VOLUME 90.9 fL (81.0-99.0); MONOCYTES # (AUTO) 0.4 10^3/uL (0.0-1.0); MONOCYTES % (AUTO) 7.4 %; NEUTROPHILS # (AUTO) 1.6 10^3/uL (1.5-6.6); NEUTROPHILS % (AUTO) 30.1 %; PLT - PLATELET COUNT 213 10^3/uL (130-450); RED BLOOD COUNT 4.52 10^6/uL (4.20-5.40); RED CELL DISTRIBUTION WIDTH 13.6 % (12.0-15.0); WHITE BLOOD COUNT 5.2 x10^3/uL (4.8-10.8)
[2024-03-04 11:46] LABS: ALBUMIN 4.1 g/dL (3.2-5.5); ALBUMIN/GLOBULIN RATIO 2.1 (1.0-2.2); ALKALINE PHOSPHATASE 61 IU/L (42-121); ALT ALANINE AMINOTRANSFERASE 12 IU/L (10-60); AST ASPARTATE AMINOTRANSFERASE 18 IU/L (10-42); BILIRUBIN,TOTAL 0.4 mg/dL (0.2-1.0); BUN - BLOOD UREA NITROGEN 20 mg/dL (6-20); CALCIUM 9.1 mg/dL (8.5-10.3); CARBON DIOXIDE - CO2 29 mmol/L (21-32); CHLORIDE 105 mmol/L (101-111); CHOLESTEROL 309 mg/dL; GFR - MDRD 55 (>89); GLUCOSE 102 mg/dL (74-104); HDL CHOLESTEROL 78 mg/dL; LDL CHOLESTEROL,CALCULATED 206 mg/dL; LDL/HDL RATIO 2.6 (<4.4); SODIUM 138 mmol/L (135-145); TOTAL PROTEIN 6.1 g/dL (6.4-8.9); TRIGLYCERIDES 127 mg/dL (48-352); VLDL CHOLESTEROL 25 mg/dL
[2024-03-04 11:56] LABS: THYROID STIMULATING HORMONE 2.26 uIU/mL (0.34-5.60)
== END 2024-03-04 11:01 | disposition home or self-care (01) ==
LOC: LAB 11:00
PROVIDERS: ATTEND Internal Medicine
DX: E78.5 Hyperlipidemia, unspecified (principal); E55.9 Vitamin D deficiency, unspecified; L30.9 Dermatitis, unspecified; F32.A Depression, unspecified
CPT/HCPCS: 36415; 80053; 80061; 82306; 83721; 84443; 85025

== ENCOUNTER 2024-03-04 11:26 | Emergency (ER) | payer MEDICARE ==
--- NOTE | 2024-03-04 11:32 | ED Physician Documentation ---
PD HPI SYNCOPE - Stated complaint Stated Complaint: SYNCOPE - History obtained from History obtained from: Patient - History of Present Illness Witnessed: Witnessed Timing - onset: How many minutes ago (5), Today Duration: Seconds Preceding symptoms: Nausea / vomiting, Light headed Associated symptoms: No: Seizure, Headache, Chest pain, Palpitations, Dyspnea Contributing factors: Decreased PO intake (had fasting blood tests drawn today and was almost lunchtime when got blood drawn.), Noxious stimulae (just got bl ood drawn, and she says she has had fainting with stimuli in the past.) Review of Systems Constitutional: denies: Fever, Chills Nose: denies: Rhinorrhea / runny nose, Congestion Throat: denies: Sore throat Respiratory: denies: Cough GI: reports: Nausea (just at time of the fainting). denies: Abdominal Pain, Vomiting, Diarrhea Neurologic: denies: Focal weakness, Headache PD PAST MEDICAL HISTORY - Past Medical History Cardiovascular: High cholesterol Respiratory: None Neuro: Other (Restless leg syndrome) Endocrine/Autoimmune: None GI: Other (IBS) MEDICAL MALPRACTICE PARALEGAL: Other (G2, P2) Psych: Depression (chronic, Cyclical. Many times is felt the world would be a better place without her. She has been tried on fluoxetine, Paxil and trazodone. Psychiatry changed her medications from Prozac to Zoloft August 2019.) Musculoskeletal: [facility]. Last 22 August 2019), Other (overuse of right arm with pain) Derm: Eczema - Past Surgical History General: Appendectomy Ortho: Spine surgery (Anterior cervical discectomy and fusion C4-5, C5-6), Other (Epidural steroid injection August 2019) /MEDICAL MALPRACTICE PARALEGAL: Tubal ligation HEENT: Tonsil/Adenoidectomy - Present Medications Home Medications: Ambulatory Orders Medication Instructions Recorded Confirmed Fluoxetine HCl [Prozac] 40 mg PO DAILY 06/12/20 06/12/20 Gabapentin [Neurontin] 400 mg PO QPM 06/12/20 06/12/20 Melatonin 10 mg PO QPM 06/12/20 06/12/20 Simethicone [Gas Relief] 180 mg PO BID 06/12/20 06/12/20 Simvastatin 40 mg PO QPM 06/12/20 06/12/20 - Allergies Allergies/Adverse Reactions: Allergies Allergy/AdvReac Type Severity Reaction Status Date / Time No Known Drug Allergies Allergy Verified 03/04/24 11:38 - Social History Smoking Status: Never smoker - POLST Patient has POLST: No POLST Status: Full Code PD ED PE NORMAL - Vitals Vital signs reviewed: Yes - General General: Alert and oriented X 3, No acute distress, Well developed/nourished - Neck Neck: Supple, no meningeal sign, No adenopathy - Cardiac Cardiac: RRR, No murmur - Respiratory Respiratory: No respiratory distress, Clear bilaterally - Derm Derm: Normal color (somewhat pale on first arrival to ED but pink color within couple minutes lying flatter and given juice and crackers. ), Warm and dry - Extremities Extremities: No edema, No calf tenderness / cord - Neuro Neuro: Alert and oriented X 3, beer brewer 2-12 intact, No motor deficit, No sensory deficit, Normal speech Results - Vitals Vitals: Oxygen O2 Source Room air - EKG (time done) 11:52 EKG releavant findings:: EKG personally interpreted by author of this note. Relevant findings are: Rate: Rate (enter#) (52) Rhythm: Sinus bradycardia, NSR [place]: Normal Intervals: Normal NM QRS: Normal Ischemia: Normal ST segments. No: ST elevation c/w ischemia, ST depression PD Medical Decision Making - ED course Complexity details: reviewed results, considered differential (had come in for outpt blood testing for upcoming PMD appt. Logan okay coming and arriving. Got blood drawn and just after finished she started to feel lightheaded, then fainted. Was in chair and did not fall. Helped to floor. [facility] called and pt brought to ED from lab. She is awake/talking.), d/w patient ED course: Sounds very vasovagal and she is feeling at baseline/well within minutes. I did not see need for teesting beyond vitals and ECG and time for recovery. Departure - Departure Disposition: 01 Home, Self Care Clinical Impression: Syncope, Vasovagal episode Condition: Stable Record reviewed to determine appropriate education?: Yes Instructions: ED Syncope Vasovagal Comments: Usual medications. Home and stay well-hydrated today. Rest as needed without vigorous activity this afternoon. Onto normal activity tomorrow. Forms: PCP List Discharge Date/Time: 03/04/24 12:37
[2024-03-04 12:41] VITALS: BP 108/56; O2SAT 99
== END 2024-03-04 12:37 | disposition home or self-care (01) ==
LOC: ED 11:26
DX: R55 Syncope and collapse (principal); E78.5 Hyperlipidemia, unspecified; L30.9 Dermatitis, unspecified; E55.9 Vitamin D deficiency, unspecified; F32.A Depression, unspecified
CPT/HCPCS: 36415; 80053; 80061; 82306; 83721; 84443; 85025; 93005; 99283; 99284

== ENCOUNTER 2024-05-18 14:15 | Outpatient (CLI) | payer MEDICARE ==
--- NOTE | 2024-05-19 08:16 | Mammography Report ---
BILATERAL DIGITAL SCREENING MAMMOGRAM 3D/2D: 05/18/2024 CLINICAL: Routine screening. Comparison is made to exams dated: 03/26/2023 mammogram, 10/01/2021 mammogram, 10/05/2020 mammogram, and 08/14/2020 mammogram - [facility]. Both breasts are almost entirely fatty (category a/<25% glandular tissue). No significant masses, calcifications, or other findings are seen in either breast. There has been no significant interval change. IMPRESSION: NEGATIVE There is no mammographic evidence of malignancy. A 1 year screening mammogram is recommended. Based on the Tyrer Cuzick model (a risk assessment model) the patient's lifetime risk is 3.0% and her 10 year risk is 2.1%. According to the ACR, ACS, and NCCN guidelines, an annual breast MRI exam andrea g with mammogram is recommended if the patient's lifetime risk is 20% or greater. This exam was interpreted at Station ID: [id number]. NOTE: For mammograms, a report in lay terms will be sent to the patient. Approximately 15% of breast malignancies will not be visualized mammographically. In the management of a palpable breast mass, a negative mammogram must not discourage biopsy of a clinically suspicious lesion. Electronically Signed By: Jc stoddard/pieter:05/18/2024 17:04:45 letter sent: No_Letter ACR BI-RADS Category 1: Negative 3341F PARENCHYMAL PATTERN: (F) - The breast(s) demonstrate(s) diffuse fatty replacement. BI-RADS CATEGORY: (1) - 1 RECOMMENDATION: (ANNUAL) - Recommend routine annual screening mammography. [id number] 1 year screening LATERALITY: (B)
== END 2024-05-18 14:16 | disposition home or self-care (01) ==
LOC: DI 14:15
PROVIDERS: ATTEND Internal Medicine
DX: Z12.31 Encounter for screening mammogram for malignant neoplasm of breast (principal)